=== PATIENT | female | born 1950 | race Caucasian/White ===

== ENCOUNTER 2023-08-08 09:56 | Outpatient (AMB) | payer MEDICARE, OTHER, SELFPAY ==
[2023-08-08 10:12] VITALS: BP 160/90; PULSE 60; BMI 35.9
--- NOTE | 2023-08-08 10:12 | HO.NEPHOV_ITS ---
HPI HPI Comments History of Present Illness Details I had the pleasure of seeing Rita in follow-up for her chronic kidney disease and hypertension on a background of right renal artery stenosis. She had pain issues and was on meloxicam which she had stopped some time ago. She does not have diabetes mellitus but has hypertension for at least 30 years. She has history of atrial fibrillation but denies any PAD, CAD, CHF . She monitors her blood pressure at home closely. Her heart rate had been running in 50s. She is on flecainide as well as Diltiazem. She also takes angiotensin receptor kiera. Sometime ago her creatinine had gone up to 2 which had later improved to 1.1. Her blood pressure continues to be labile. She does not have any chest pain, shortness of breath, headache, dizziness, edema or urinary symptoms. She is concerned about her suboptimally controlled blood pressure. [facility] Medical History Hyperlipidemia Malaise and fatigue Impaired fasting glucose Essential hypertension Atrial fibrillation Acute kidney failure Family History (Updated 08/08/23 @ 10:11 by Pauly Powell MA) Father Stroke Hypertension Diabetes Maternal Aunt Cancer Vital Signs 08/08/23 10:12 Height 5 ft 2 in Weight 196 lb 8 oz BMI 35.9 BP 160/90 H Pulse 60 Pulse Source Pulse Oximeter Results Reviewed Results Reviewed: Her last lab work was quite awhile ago. I have ordered blood work before next visit. Assessment & Plan Assessment & Plan (1) CKD (chronic kidney disease) stage 3, GFR 30-59 ml/min: Code(s): N18.30 - Chronic kidney disease, stage 3 unspecified (2) Hypertension: Code(s): I10 - Essential (primary) hypertension (3) Renal artery stenosis: Code(s): I70.1 - Atherosclerosis of renal artery Plan Rita has hypertension from vascular disease. She has right renal artery stenosis. Her last serum creatinine was 1.1. Blood work had been ordered prior to next visit in a month. After seeing her serum creatinine I will order Doppler of her renal arteries at the next visit. She may need renal angiogram. Given suboptimal control blood pressure, I have increased the hydralazine to 75 mg 3 times a day. She should avoid nonsteroidal anti-inflammatory medications and remain well hydrated. All questions were answered and follow-up was given . She is already on Eliquis. She is on simvastatin as well. Time spent for for curing data outside hospital, encounter and documentation is 43 minutes. Orders: Orders Blood Urea Nitrogen Today I10 - Essential (primary) hypertension, I70.1 - Atherosclerosis of renal artery, N18.30 - Chronic kidney disease, stage 3 unspecified Creatinine Today I10 - Essential (primary) hypertension, I70.1 - Atherosclerosis of renal artery, N18.30 - Chronic kidney disease, stage 3 unspecified Calcium Today I10 - Essential (primary) hypertension, I70.1 - Atherosclerosis of renal artery, N18.30 - Chronic kidney disease, stage 3 unspecified Electrolytes Today I10 - Essential (primary) hypertension, I70.1 - Atherosclerosis of renal artery, N18.30 - Chronic kidney disease, stage 3 unspecified Coding Level of Care Code Est Pt Level 4 (79353) Diagnoses CKD (chronic kidney disease) stage 3, GFR 30-59 ml/min N18.30 Hypertension I10 Renal artery stenosis I70.1
== END 2023-08-08 10:53 | disposition home or self-care (01) ==
PROVIDERS: PCP Internal Medicine; Visit Provider Internal Medicine Nephrology
DX: N18.30 Chronic kidney disease, stage 3 unspecified (principal); I12.9 Hypertensive chronic kidney disease with stage 1 through stage 4 chronic kidney disease, or unspecified chronic kidney disease; I70.1 Atherosclerosis of renal artery
CPT/HCPCS: 99215

== ENCOUNTER → 2023-08-08 09:56 | Outpatient (BNVA) | payer MEDICARE, OTHER, SELFPAY | PROVIDERS: PCP Internal Medicine; Visit Provider Internal Medicine Nephrology | DX: I12.9 Hypertensive chronic kidney disease with stage 1 through stage 4 chronic kidney disease, or unspecified chronic kidney disease (principal); N18.30 Chronic kidney disease, stage 3 unspecified; I70.1 Atherosclerosis of renal artery | CPT/HCPCS: 36415; 80051; 82310; 82565; 84520; 99212 ==

== ENCOUNTER 2023-08-08 11:12 | Outpatient (REF) | payer MEDICARE, OTHER, SELFPAY ==
[2023-08-08 13:50] LABS: Anion Gap 12 (12-20); Blood Urea Nitrogen 15 mg/dL (9-16); Calcium 9.4 mg/dL (8.4-10.2); Carbon Dioxide 30 mmol/L (22-29); Chloride 104 mmol/L (96-108); Estimated Glomerular Filt Rate > 60; Potassium 3.7 mmol/L (3.3-5.1); Sodium 142 mmol/L (135-145)
== END 2023-08-08 11:13 | disposition home or self-care (01) ==
LOC: HO.10HDL 11:12
PROVIDERS: Visit Provider Internal Medicine Nephrology
DX: Z13.89 Encounter for screening for other disorder (principal)
CPT/HCPCS: 36415; 80051; 82310; 82565; 84520

== ENCOUNTER 2023-09-04 13:36 | Outpatient (AMB) | payer MEDICARE, OTHER, SELFPAY ==
[2023-09-04 13:48] VITALS: PULSE 62; BMI 35.9
--- NOTE | 2023-09-04 13:48 | HO.NEPHOV ---
HPI HPI Comments History of Present Illness Details I had the pleasure of seeing Rita in follow-up for her chronic kidney disease and hypertension on a background of right renal artery stenosis. She had pain issues and was on meloxicam which she had stopped some time ago. She does not have diabetes mellitus but has hypertension for at least 30 years. Her BP has improved after increasing hydralazine to 75 mg tid. She has history of atrial fibrillation but denies any PAD, CAD, CHF . She monitors her blood pressure at home closely. Her heart rate had been running in 50s. She is on flecainide as well as Diltiazem. She also takes angiotensin receptor kiera. Sometime ago her creatinine had gone up to 2 which had later improved to 1.1. She does not have any chest pain, shortness of breath, headache, dizziness, edema or urinary symptoms. [facility] Medical History Hyperlipidemia Malaise and fatigue Impaired fasting glucose Essential hypertension Atrial fibrillation Acute kidney failure Family History Father Stroke Hypertension Diabetes Maternal Aunt Cancer Vital Signs 09/04/23 13:48 Height 5 ft 2 in Weight 196 lb 8 oz BMI 35.9 Pulse 62 Pulse Source Pulse Oximeter Physical Exam Vital Signs: Last Vital Signs Pulse 62 09/04/23 13:48 BMI result Body Mass Index 35.9 Const General: comfortable and no acute distress Orientation/consciousness: patient oriented x3 HEENT Head: Yes normocephalic Mouth: Normal oral and palatal mucosa present Eyes EOM: EOMs intact bilaterally Neck Neck: Yes supple Resp Auscultation: clear to auscultation bilaterally Cardio Jugular venous distension: no JVD Rate: regular rate GI Palpation (GI): Soft to palpation Auscultation: normal bowel sounds General: Yes no CVA tenderness Back/Spine/Pelvis Back: no CVA tenderness Skin General skin exam: no rashes or lesions noted Neuro General: patient oriented x3 and moves all extremities Extrem General: Yes no pedal edema Assessment & Plan Assessment & Plan (1) Hypertension: Code(s): I10 - Essential (primary) hypertension Qualifiers: Hypertension type: renovascular hypertension Qualified Code(s): I15.0 - Renovascular hypertension (2) Renal artery stenosis: Code(s): I70.1 - Atherosclerosis of renal artery Plan Rita has hypertension from vascular disease. She has right renal artery stenosis. Her last serum creatinine was 1.1. I will order Doppler of her renal arteries at the next visit. She may need renal angiogram. She will continue her current medication regimen for now.. She should avoid nonsteroidal anti-inflammatory medications and remain well hydrated. All questions were answered and follow-up was given . She is already on Eliquis. She is on simvastatin as well. Follow-up given Orders: Orders Blood Urea Nitrogen 09/04/23 I10 - Essential (primary) hypertension, I70.1 - Atherosclerosis of renal artery Creatinine 09/04/23 I10 - Essential (primary) hypertension, I70.1 - Atherosclerosis of renal artery Electrolytes 6 Weeks I10 - Essential (primary) hypertension, I70.1 - Atherosclerosis of renal artery Blood Urea Nitrogen 6 Weeks I10 - Essential (primary) hypertension, I70.1 - Atherosclerosis of renal artery Electrolytes 09/04/23 I10 - Essential (primary) hypertension, I70.1 - Atherosclerosis of renal artery Creatinine 6 Weeks I10 - Essential (primary) hypertension, I70.1 - Atherosclerosis of renal artery Medications: New spironolactone 12.5 mg (1/2 x 25 mg) PO DAILY 15 tabs 3RF 30 days Coding Level of Care Code Est Pt Level 3 (18744) Diagnoses Renovascular hypertension I15.0 Hypertension type: renovascular hypertension Renal artery stenosis I70.1 Results Reviewed Nephrology Results: Sodium 143 mmol/L (135-145) 09/15/23 Potassium 3.7 mmol/L (3.3-5.1) 09/15/23 Chloride 103 mmol/L (96-108) 09/15/23 Carbon Dioxide 27 mmol/L (22-29) 09/15/23 BUN 19 mg/dL (9-16) H 09/15/23 Creatinine 0.97 mg/dL (0.5-1.4) 09/15/23 Calcium 9.4 mg/dL (8.4-10.2) 08/08/23
== END 2023-09-04 14:28 | disposition home or self-care (01) ==
PROVIDERS: PCP Internal Medicine; Visit Provider Internal Medicine Nephrology
DX: I15.0 Renovascular hypertension (principal); I70.1 Atherosclerosis of renal artery
CPT/HCPCS: 99213

== ENCOUNTER → 2023-09-04 13:36 | Outpatient (BNVA) | payer MEDICARE, BC, OTHER, SELFPAY | PROVIDERS: PCP Internal Medicine; Visit Provider Internal Medicine Nephrology | DX: I15.0 Renovascular hypertension (principal); I70.1 Atherosclerosis of renal artery | CPT/HCPCS: 99212 ==

== ENCOUNTER 2023-09-15 09:29 | Outpatient (REF) | payer MEDICARE, OTHER, SELFPAY ==
[2023-09-15 12:10] LABS: Anion Gap 17 (12-20); Blood Urea Nitrogen 19 mg/dL (9-16); Carbon Dioxide 27 mmol/L (22-29); Chloride 103 mmol/L (96-108); Estimated Glomerular Filt Rate 56; Potassium 3.7 mmol/L (3.3-5.1); Sodium 143 mmol/L (135-145)
== END 2023-09-15 09:30 | disposition home or self-care (01) ==
LOC: HO.HMGCLDS 09:29
PROVIDERS: PCP Internal Medicine; Visit Provider Internal Medicine Nephrology
DX: I10 Essential (primary) hypertension (principal); I70.1 Atherosclerosis of renal artery
CPT/HCPCS: 36415; 80051; 82565; 84520

== ENCOUNTER 2023-10-20 10:32 | Outpatient (AMB) | payer MEDICARE, OTHER, SELFPAY ==
[2023-10-20 10:37] VITALS: BP 160/74; PULSE 59; O2SAT 98; BMI 35.5
--- NOTE | 2023-10-20 10:37 | HO.NEPHOV_ITS ---
HPI HPI Comments History of Present Illness Details I had the pleasure of seeing Rita in follow-up for her chronic kidney disease and hypertension on a background of right renal artery stenosis. She does not have diabetes mellitus but has hypertension for at least 30 years. Her BP has improved to goal after increasing hydralazine to 75 mg tid and introduction of Spironolactone. She has history of atrial fibrillation but denies any PAD, CAD, CHF . She monitors her blood pressure at home closely. Her heart rate had been running in 50s. She is on flecainide as well as Diltiazem. She also takes angiotensin receptor kiera. Sometime ago her creatinine had gone up to 2 which had later improved to 1.1. She does not have any chest pain, shortness of breath, headache, dizziness, edema or urinary symptoms PFSH Medical History Hyperlipidemia Malaise and fatigue Impaired fasting glucose Essential hypertension Atrial fibrillation Acute kidney failure Family History Father Stroke Hypertension Diabetes Maternal Aunt Cancer Vital Signs 10/20/23 10:37 Height 5 ft 2 in Weight 194 lb BMI 35.5 BP 160/74 H Blood Pressure Location Lt brachial Position Sitting Pulse 59 Pulse Source Pulse Oximeter Pulse Oximetry (%) 98 Oxygen Delivery Method Room Air Physical Exam Vital Signs: Last Vital Signs Pulse 59 10/20/23 10:37 BP 160/74 H 10/20/23 10:37 Pulse Ox 98 10/20/23 10:37 Oxygen Delivery Method Room Air 10/20/23 10:37 BMI result Body Mass Index 35.5 Const General: comfortable and no acute distress Orientation/consciousness: patient oriented x3 HEENT Head: Yes normocephalic Mouth: Normal oral and palatal mucosa present Eyes EOM: EOMs intact bilaterally Neck Neck: Yes supple Resp Auscultation: clear to auscultation bilaterally Cardio Jugular venous distension: no JVD Rate: regular rate GI Palpation (GI): Soft to palpation Auscultation: normal bowel sounds General: Yes no CVA tenderness Back/Spine/Pelvis Back: no CVA tenderness Skin General skin exam: no rashes or lesions noted Neuro General: patient oriented x3 and moves all extremities Extrem General: Yes no pedal edema Assessment & Plan Assessment & Plan (1) Renal artery stenosis: Code(s): I70.1 - Atherosclerosis of renal artery (2) Hypertension: Code(s): I10 - Essential (primary) hypertension Qualifiers: Hypertension type: renovascular hypertension Qualified Code(s): I15.0 - Renovascular hypertension (3) CKD (chronic kidney disease) stage 3, GFR 30-59 ml/min: Code(s): N18.30 - Chronic kidney disease, stage 3 unspecified Qualifiers: Chronic kidney disease stage 3 subtype: stage 3a (GFR 45-59) Qualified Code(s): N18.31 - Chronic kidney disease, stage 3a Plan Rita has hypertension from vascular disease. She has right renal artery stenosis. Her last serum creatinine was 1.1. I will order a follow up Doppler of her renal arteries with time. She does not need renal angiogram now. She will continue her current medication regimen for now.. She should avoid nonsteroidal anti-inflammatory medications and remain well hydrated. All questions were answered and follow-up was given . She is already on Eliquis. She is on simvastatin as well. Follow-up given Orders: Orders Blood Urea Nitrogen 10/20/23 I10 - Essential (primary) hypertension, I70.1 - Atherosclerosis of renal artery, N18.30 - Chronic kidney disease, stage 3 unspecified Creatinine 10/20/23 I10 - Essential (primary) hypertension, I70.1 - Atherosclerosis of renal artery, N18.30 - Chronic kidney disease, stage 3 unspecified Creatinine 3 Months I10 - Essential (primary) hypertension, I70.1 - Atherosclerosis of renal artery, N18.30 - Chronic kidney disease, stage 3 unspecified Electrolytes 10/20/23 I10 - Essential (primary) hypertension, I70.1 - Ather osclerosis of renal artery, N18.30 - Chronic kidney disease, stage 3 unspecified Medications: Changed From spironolactone 12.5 mg (1/2 x 25 mg) PO DAILY 30 days 15 tabs 3RF To spironolactone 12.5 mg (1/2 x 25 mg) PO DAILY 90 days 45 tabs 4RF Coding Level of Care Code Est Pt Level 3 (85537) Diagnoses Renal artery stenosis I70.1 Renovascular hypertension I15.0 Hypertension type: renovascular hypertension Stage 3a chronic kidney disease N18.31 Chronic kidney disease stage 3 subtype: stage 3a (GFR 45-59) Results Reviewed Nephrology Results: Sodium 143 mmol/L (135-145) 09/15/23 Potassium 3.7 mmol/L (3.3-5.1) 09/15/23 Chloride 103 mmol/L (96-108) 09/15/23 Carbon Dioxide 27 mmol/L (22-29) 09/15/23 BUN 19 mg/dL (9-16) H 09/15/23 Creatinine 0.97 mg/dL (0.5-1.4) 09/15/23 Calcium 9.4 mg/dL (8.4-10.2) 08/08/23
== END 2023-10-20 11:24 | disposition home or self-care (01) ==
PROVIDERS: PCP Internal Medicine; Visit Provider Internal Medicine Nephrology
DX: I70.1 Atherosclerosis of renal artery (principal); I15.0 Renovascular hypertension; N18.31 Chronic kidney disease, stage 3a
CPT/HCPCS: 99213

== ENCOUNTER → 2023-10-20 10:32 | Outpatient (BNVA) | payer MEDICARE, SELFPAY | PROVIDERS: PCP Internal Medicine; Visit Provider Internal Medicine Nephrology | DX: I70.1 Atherosclerosis of renal artery (principal); I15.0 Renovascular hypertension; N18.31 Chronic kidney disease, stage 3a | CPT/HCPCS: 99212 ==

== ENCOUNTER 2023-12-15 09:56 | Outpatient (REF) | payer MEDICARE, OTHER, SELFPAY ==
[2023-12-15 13:46] LABS: Anion Gap 11 (12-20); Blood Urea Nitrogen 31 mg/dL (9-16); Carbon Dioxide 27 mmol/L (22-29); Chloride 108 mmol/L (96-108); Estimated Glomerular Filt Rate 32; Potassium 4.1 mmol/L (3.3-5.1); Sodium 142 mmol/L (135-145)
== END 2023-12-15 09:57 | disposition home or self-care (01) ==
LOC: HO.HMGCLDS 09:56
PROVIDERS: PCP Internal Medicine; Visit Provider Internal Medicine Nephrology
DX: I12.9 Hypertensive chronic kidney disease with stage 1 through stage 4 chronic kidney disease, or unspecified chronic kidney disease (principal); N18.30 Chronic kidney disease, stage 3 unspecified; I70.1 Atherosclerosis of renal artery
CPT/HCPCS: 36415; 80051; 82565; 84520

== ENCOUNTER 2024-01-02 10:40 | Outpatient (REF) | payer MEDICARE, OTHER, SELFPAY ==
[2024-01-02 16:33] LABS: Estimated Glomerular Filt Rate 40
== END 2024-01-02 10:41 | disposition home or self-care (01) ==
LOC: HO.HMGCLDS 10:40
PROVIDERS: PCP Internal Medicine; Visit Provider Internal Medicine Nephrology
DX: I70.1 Atherosclerosis of renal artery (principal); I12.9 Hypertensive chronic kidney disease with stage 1 through stage 4 chronic kidney disease, or unspecified chronic kidney disease; N18.30 Chronic kidney disease, stage 3 unspecified
CPT/HCPCS: 36415; 82565

== ENCOUNTER 2024-01-05 10:12 | Outpatient (AMB) | payer MEDICARE, OTHER, SELFPAY ==
[2024-01-05 10:19] VITALS: BP 156/82; PULSE 67; BMI 35.0
--- NOTE | 2024-01-05 10:19 | HO.NEPHOV ---
HPI HPI Comments History of Present Illness Details I had the pleasure of seeing Rita in follow-up for her chronic kidney disease and hypertension on a background of right renal artery stenosis. She does not have diabetes mellitus but has hypertension for at least 30 years. Her serum creatinine had gone up and her Irbesartan was reduced to 150 mg with improvement in creatinine. She has history of atrial fibrillation but denies any PAD, CAD, CHF . She monitors her blood pressure at home closely. She is on flecainide as well as Diltiazem. She does not have any chest pain, shortness of breath, headache, dizziness, edema or urinary symptoms [facility] Medical History Hyperlipidemia Malaise and fatigue Impaired fasting glucose Essential hypertension Atrial fibrillation Acute kidney failure Family History Father Stroke Hypertension Diabetes Maternal Aunt Cancer Vital Signs 01/05/24 10:19 Height 5 ft 2 in Weight 191 lb 8 oz BMI 35.0 BP 156/82 H Blood Pressure Location Lt brachial Position Sitting Pulse 67 Physical Exam Vital Signs: Last Vital Signs Pulse 67 01/05/24 10:19 BP 156/82 H 01/05/24 10:19 BMI result Body Mass Index 35.0 Const General: comfortable and no acute distress Orientation/consciousness: patient oriented x3 HEENT Head: Yes normocephalic Mouth: Normal oral and palatal mucosa present Eyes EOM: EOMs intact bilaterally Neck Neck: Yes supple Resp Auscultation: clear to auscultation bilaterally Cardio Jugular venous distension: no JVD Rate: regular rate GI Palpation (GI): Soft to palpation Auscultation: normal bowel sounds General: Yes no CVA tenderness Back/Spine/Pelvis Back: no CVA tenderness Skin General skin exam: no rashes or lesions noted Neuro General: patient oriented x3 and moves all extremities Extrem General: Yes no pedal edema Assessment & Plan Assessment & Plan (1) CHARISSE (acute kidney injury): Code(s): N17.9 - Acute kidney failure, unspecified (2) Renal artery stenosis: Code(s): I70.1 - Atherosclerosis of renal artery (3) Hypertension: Code(s): I10 - Essential (primary) hypertension Qualifiers: Hypertension type: renovascular hypertension Qualified Code(s): I15.0 - Renovascular hypertension (4) CKD (chronic kidney disease) stage 3, GFR 30-59 ml/min: Code(s): N18.30 - Chronic kidney disease, stage 3 unspecified Qualifiers: Chronic kidney disease stage 3 subtype: stage 3a (GFR 45-59) Qualified Code(s): N18.31 - Chronic kidney disease, stage 3a Gabriela Salinas has hypertension from vascular disease. She has right renal artery stenosis. Her CHARISSE has improved with reduction in dosage of Irbesartan. I will order a follow up Doppler of her renal arteries with time. She does not need renal angiogram now. She will continue her rest of current medication regimen for now.. She should avoid nonsteroidal anti-inflammatory medications and remain well hydrated. All questions were answered and follow-up was given . She is already on Eliquis. She is on simvastatin as well. Follow-up given Orders: Orders Blood Urea Nitrogen Today I15.0 - Renovascular hypertension, I70.1 - Atherosclerosis of renal artery, N17.9 - Acute kidney failure, unspecified, N18.31 - Chronic kidney disease, stage 3a Creatinine Today I15.0 - Renovascular hypertension, I70.1 - Atherosclerosis of renal artery, N17.9 - Acute kidney failure, unspecified, N18.31 - Chronic kidney disease, stage 3a Electrolytes Today I15.0 - Renovascular hypertension, I70.1 - Atherosclerosis of renal artery, N17.9 - Acute kidney failure, unspecified, N18.31 - Chronic kidney disease, stage 3a Coding Level of Care Code Est Pt Level 4 (41899) Diagnoses CHARISSE (acute kidney injury) N17.9 Renal artery stenosis I70.1 Renovascular hypertension I15.0 Hypertension type: renovascular hypertension Stage 3a chronic kidney disease N18.31 Chronic kidney disease stage 3 subtype: stage 3a (GFR 45-59) Results Reviewed Nephrology Results: Sodium 142 mmol/L (135-145) 12/15/23 Potassium 4.1 mmol/L (3.3-5.1) 12/15/23 Chloride 108 mmol/L (96-108) 12/15/23 Carbon Dioxide 27 mmol/L (22-29) 12/15/23 BUN 31 mg/dL (9-16) H 12/15/23 Creatinine 1.31 mg/dL (0.5-1.4) 01/02/24 Calcium 9.4 mg/dL (8.4-10.2) 08/08/23
== END 2024-01-05 11:02 | disposition home or self-care (01) ==
PROVIDERS: PCP Internal Medicine; Visit Provider Internal Medicine Nephrology
DX: N17.9 Acute kidney failure, unspecified (principal); I70.1 Atherosclerosis of renal artery; I15.0 Renovascular hypertension; N18.31 Chronic kidney disease, stage 3a
CPT/HCPCS: 99214

== ENCOUNTER → 2024-01-05 10:12 | Outpatient (BNVA) | payer MEDICARE, OTHER, BC, SELFPAY | PROVIDERS: PCP Internal Medicine; Visit Provider Internal Medicine Nephrology | DX: N17.9 Acute kidney failure, unspecified (principal); I70.1 Atherosclerosis of renal artery; I15.0 Renovascular hypertension; N18.31 Chronic kidney disease, stage 3a | CPT/HCPCS: 99212 ==

== ENCOUNTER 2024-04-16 09:54 | Outpatient (REF) | payer MEDICARE, BC, SELFPAY ==
[2024-04-16 11:14] LABS: Anion Gap 15 (12-20); Blood Urea Nitrogen 35 mg/dL (9-16); Carbon Dioxide 25 mmol/L (22-29); Chloride 105 mmol/L (96-108); Estimated Glomerular Filt Rate 38; Sodium 140 mmol/L (135-145)
== END 2024-04-16 09:55 | disposition home or self-care (01) ==
LOC: HO.10HDL 09:54
PROVIDERS: Visit Provider Internal Medicine Nephrology
DX: N17.9 Acute kidney failure, unspecified (principal); I70.1 Atherosclerosis of renal artery; I15.0 Renovascular hypertension; N18.31 Chronic kidney disease, stage 3a
CPT/HCPCS: 36415; 80051; 82565; 84520

== ENCOUNTER 2024-04-19 10:31 | Outpatient (AMB) | payer MEDICARE, OTHER, SELFPAY ==
[2024-04-19 10:47] VITALS: BP 112/58; PULSE 64; O2SAT 96; BMI 34.9
--- NOTE | 2024-04-19 10:47 | HO.NEPHOV ---
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 She has hypertension for at least 30 years. She recently had a fall and sustained a fracture on the right humerus. Her BP has been running low normal. She has history of atrial fibrillation but denies any PAD, CAD, CHF . She monitors her blood pressure at home closely. She is on flecainide as well as Diltiazem. She does not have any chest pain, shortness of breath, headache, dizziness, edema or urinary symptoms PFSH Medical History Hyperlipidemia Malaise and fatigue Impaired fasting glucose Essential hypertension Atrial fibrillation Acute kidney failure Family History Father Stroke Hypertension Diabetes Maternal Aunt Cancer Physical Exam Vital Signs: Last Vital Signs Pulse 64 04/19/24 10:47 BP 112/58 L 04/19/24 10:47 Pulse Ox 96 04/19/24 10:47 Oxygen Delivery Method Room Air 04/19/24 10:47 BMI result Body Mass Index 34.9 Const General: comfortable and no acute distress Orientation/consciousness: patient oriented x3 HEENT Head: Yes normocephalic Mouth: Normal oral and palatal mucosa present Eyes EOM: EOMs intact bilaterally Neck Neck: Yes supple Resp Auscultation: clear to auscultation bilaterally Cardio Jugular venous distension: no JVD Rate: regular rate GI Palpation (GI): Soft to palpation Auscultation: normal bowel sounds General: Yes no CVA tenderness Back/Spine/Pelvis Back: no CVA tenderness Skin General skin exam: no rashes or lesions noted Neuro General: patient oriented x3 and moves all extremities Extrem General: Yes no pedal edema Results Reviewed Nephrology Results: Sodium 140 mmol/L (135-145) 04/16/24 Potassium 5.0 mmol/L (3.3-5.1) 04/16/24 Chloride 105 mmol/L (96-108) 04/16/24 Carbon Dioxide 25 mmol/L (22-29) 04/16/24 BUN 35 mg/dL (9-16) H 04/16/24 Creatinine 1.35 mg/dL (0.5-1.4) 04/16/24 Calcium 9.4 mg/dL (8.4-10.2) 08/08/23 Assessment & Plan Assessment & Plan (1) Renal artery stenosis: Code(s): I70.1 - Atherosclerosis of renal artery Category: Medical (2) Hypertension: Code(s): I10 - Essential (primary) hypertension Category: Medical Qualifiers: Hypertension type: renovascular hypertension Qualified Code(s): I15.0 - Renovascular hypertension (3) CKD (chronic kidney disease) stage 3, GFR 30-59 ml/min: Code(s): N18.30 - Chronic kidney disease, stage 3 unspecified Category: Medical Qualifiers: Chronic kidney disease stage 3 subtype: stage 3a (GFR 45-59) Qualified Code(s): N18.31 - Chronic kidney disease, stage 3a Plan Rita has hypertension from vascular disease. She has right renal artery stenosis. Her CHARISSE has improved with reduction in dosage of Irbesartan. I will order a follow up Doppler of her renal arteries with time. She does not need renal angiogram now. She will continue her rest of current medication regimen for now but I have asked her to take Spironolactone in the afternoon and Diltiazem at supper time to avoid orthostasis. She should avoid nonsteroidal anti-inflammatory medications and remain well hydrated. All questions were answered and follow-up was given . She is already on Eliquis. She is on simvastatin as well. Follow-up given Orders: Orders Creatinine Today I15.0 - Renovascular hypertension, I70.1 - Atherosclerosis of renal artery, N18.31 - Chronic kidney disease, stage 3a Electrolytes Today I15.0 - Renovascular hypertension, I70.1 - Atherosclerosis of renal artery, N18.31 - Chronic kidney disease, stage 3a Blood Urea Nitrogen Today I15.0 - Renovascular hypertension, I70.1 - Atherosclerosis of renal artery, N18.31 - Chronic kidney disease, stage 3a Coding Level of Care Code Est Pt Level 4 (87884) Diagnoses Renal artery stenosis I70.1 Renovascular hypertension I15.0 Hypertension type: renovascular hypertension Stage 3a chronic kidney disease N18.31 Chronic kidney disease stage 3 subtype: stage 3a (GFR 45-59)
== END 2024-04-19 11:30 | disposition home or self-care (01) ==
PROVIDERS: PCP Internal Medicine; Visit Provider Internal Medicine Nephrology
DX: I70.1 Atherosclerosis of renal artery (principal); I15.0 Renovascular hypertension; N18.31 Chronic kidney disease, stage 3a
CPT/HCPCS: 99214

== ENCOUNTER → 2024-04-19 10:31 | Outpatient (BNVA) | payer MEDICARE, OTHER, SELFPAY | PROVIDERS: PCP Internal Medicine; Visit Provider Internal Medicine Nephrology | DX: I70.1 Atherosclerosis of renal artery (principal); I15.0 Renovascular hypertension; N18.31 Chronic kidney disease, stage 3a | CPT/HCPCS: 99212 ==

== ENCOUNTER 2024-06-12 10:46 | Outpatient (REF) | payer MEDICARE, OTHER, SELFPAY ==
[2024-06-12 14:45] LABS: Anion Gap 14 (12-20); Blood Urea Nitrogen 35 mg/dL (9-16); Carbon Dioxide 25 mmol/L (22-29); Chloride 108 mmol/L (96-108); Estimated Glomerular Filt Rate 32; Potassium 4.8 mmol/L (3.3-5.1); Sodium 142 mmol/L (135-145)
== END 2024-06-12 10:47 | disposition home or self-care (01) ==
LOC: HO.HMGCLDS 10:46
PROVIDERS: PCP Internal Medicine; Visit Provider Internal Medicine Nephrology
DX: I70.1 Atherosclerosis of renal artery (principal); I15.0 Renovascular hypertension; N18.31 Chronic kidney disease, stage 3a
CPT/HCPCS: 36415; 80051; 82565; 84520

== ENCOUNTER 2024-06-14 14:15 | Outpatient (AMB) | payer MEDICARE, OTHER, SELFPAY ==
--- NOTE | 2024-06-14 14:24 | HO.NEPHOV_ITS ---
Vital Signs 06/14/24 14:25 Height 5 ft 2 in Weight 191 lb 4 oz BMI 35.0 BP 102/60 Blood Pressure Location Lt brachial Position Sitting Pulse 63 Pulse Source Pulse Oximeter Pulse Oximetry (%) 100 Oxygen Delivery Method Room Air Intake Visit Reasons: 2 mon follow up- Conf Photographic Specialist Required: No Accompanied by: Self / Same As Patient Allergies atenolol Allergy (Verified 06/14/24 14:27) Unknown HPI Comments Details: I had the pleasure of seeing Rita in follow-up for her chronic kidney disease and hypertension on a background of right renal artery stenosis. She has hypertension for at least 30 years. She recently had a fall and sustained a fracture on the right humerus. Her BP has been running low normal. She has history of atrial fibrillation but denies any PAD, CAD, CHF . She monitors her blood pressure at home closely. She is on flecainide as well as Diltiazem. She does not have any chest pain, shortness of breath, headache, dizziness, edema or urinary symptoms. Her BP has been running low PFSH Medical History Hyperlipidemia Malaise and fatigue Impaired fasting glucose Essential hypertension Atrial fibrillation Acute kidney failure Family History Father Stroke Hypertension Diabetes Maternal Aunt Cancer Review of Systems Const All systems reviewed & are unremarkable except as noted in HPI and below Physical Exam Vital Signs: Last Vital Signs Pulse 63 06/14/24 14:25 BP 102/60 06/14/24 14:25 Pulse Ox 100 06/14/24 14:25 Oxygen Delivery Method Room Air 06/14/24 14:25 BMI result Body Mass Index 35.0 Const General: comfortable and no acute distress Orientation/consciousness: patient oriented x3 HEENT Head: Yes normocephalic Mouth: Normal oral and palatal mucosa present Eyes EOM: EOMs intact bilaterally Neck Neck: Yes supple Resp Auscultation: clear to auscultation bilaterally Cardio Jugular venous distension: no JVD Rate: regular rate GI Palpation (GI): Soft to palpation Auscultation: normal bowel sounds General: Yes no CVA tenderness Back/Spine/Pelvis Back: no CVA tenderness Skin General skin exam: no rashes or lesions noted Neuro General: patient oriented x3 and moves all extremities Extrem General: Yes no pedal edema Results Reviewed Nephrology Results: Sodium 142 mmol/L (135-145) 06/12/24 Potassium 4.8 mmol/L (3.3-5.1) 06/12/24 Chloride 108 mmol/L (96-108) 06/12/24 Carbon Dioxide 25 mmol/L (22-29) 06/12/24 BUN 35 mg/dL (9-16) H 06/12/24 Creatinine 1.56 mg/dL (0.5-1.4) H 06/12/24 Assessment & Plan Assessment & Plan (1) Renal artery stenosis: Code(s): I70.1 - Atherosclerosis of renal artery Category: Medical (2) Hypertension: Code(s): I10 - Essential (primary) hypertension Category: Medical Qualifiers: Hypertension type: renovascular hypertension Qualified Code(s): I15.0 - Renovascular hypertension (3) CKD (chronic kidney disease) stage 3, GFR 30-59 ml/min: Code(s): N18.30 - Chronic kidney disease, stage 3 unspecified Category: Medical Qualifiers: Chronic kidney disease stage 3 subtype: stage 3a (GFR 45-59) Qualified Code(s): N18.31 - Chronic kidney disease, stage 3a Plan Rita has hypertension from vascular disease. She has right renal artery stenosis. Her CHARISSE has improved with reduction in dosage of Irbesartan but has gone up again. Her BP is running low normal. I reduced her hydralazine to 50 mg tid. I will order a follow up Doppler of her renal arteries with time. She does not need renal angiogram now. She will continue her rest of current medication regimen for now but I have asked her to take Spironolactone in the afternoon and Diltiazem at supper time to avoid orthostasis. She should avoid nonsteroidal anti-inflammatory medications and remain well hydrated. All questions were answered and follow-up was given . She is already on Eliquis. She is on simvastatin as well. Follow-up given Coding Level of Care Code Est Pt Level 4 (78774) Diagnoses Renal artery stenosis I70.1 Renovascular hypertension I15.0 Hypertension type: renovascular hypertension Stage 3a chronic kidney disease N18.31 Chronic kidney disease stage 3 subtype: stage 3a (GFR 45-59)
[2024-06-14 14:25] VITALS: BP 102/60; PULSE 63; O2SAT 100; BMI 35.0
== END 2024-06-14 14:54 | disposition home or self-care (01) ==
PROVIDERS: PCP Internal Medicine; Visit Provider Internal Medicine Nephrology
DX: I70.1 Atherosclerosis of renal artery (principal); I12.9 Hypertensive chronic kidney disease with stage 1 through stage 4 chronic kidney disease, or unspecified chronic kidney disease; N18.31 Chronic kidney disease, stage 3a
CPT/HCPCS: 99214

== ENCOUNTER → 2024-06-14 14:15 | Outpatient (BNVA) | payer MEDICARE, OTHER, SELFPAY | PROVIDERS: PCP Internal Medicine; Visit Provider Internal Medicine Nephrology | DX: I15.0 Renovascular hypertension (principal); I48.91 Unspecified atrial fibrillation; I70.1 Atherosclerosis of renal artery; N18.31 Chronic kidney disease, stage 3a | CPT/HCPCS: 99212 ==

== ENCOUNTER 2024-07-25 14:10 | Outpatient (REF) | payer MEDICARE, OTHER, SELFPAY ==
[2024-07-25 16:45] LABS: Anion Gap 12 (12-20); Blood Urea Nitrogen 22 mg/dL (9-16); Carbon Dioxide 26 mmol/L (22-29); Chloride 108 mmol/L (96-108); Estimated Glomerular Filt Rate 44; Potassium 4.3 mmol/L (3.3-5.1); Sodium 142 mmol/L (135-145)
== END 2024-07-25 14:11 | disposition home or self-care (01) ==
LOC: HO.HMGCLDS 14:10
PROVIDERS: PCP Internal Medicine; Visit Provider Internal Medicine Nephrology
DX: N17.9 Acute kidney failure, unspecified (principal); N18.31 Chronic kidney disease, stage 3a
CPT/HCPCS: 36415; 80051; 82565; 84520

== ENCOUNTER 2024-08-16 10:59 | Outpatient (AMB) | payer MEDICARE, OTHER, SELFPAY ==
--- NOTE | 2024-08-16 11:04 | HO.NEPHOV_ITS ---
Vital Signs 08/16/24 11:06 Height 5 ft 2 in Weight 192 lb 6 oz BMI 35.2 BP 116/70 Blood Pressure Location Lt brachial Position Sitting Pulse 56 Pulse Source Pulse Oximeter Pulse Oximetry (%) 98 Oxygen Delivery Method Room Air Intake Visit Reasons: CKD-Conf Fleet Administrative Assistant Required: No Accompanied by: Self / Same As Patient Allergies atenolol Allergy (Verified 08/16/24 11:06) Unknown HPI Comments Details: I had the pleasure of seeing Rita in follow-up for her chronic kidney disease and hypertension on a background of right renal artery stenosis. She has hypertension for at least 30 years. She recently had a fall and sustained a fracture on the right humerus. She has history of atrial fibrillation but denies any PAD, CAD, CHF . She monitors her blood pressure at home closely. She is on flecainide as well as Diltiazem. She does not have any chest pain, shortness of breath, headache, dizziness, edema or urinary symptoms. [facility] Medical History Hyperlipidemia Malaise and fatigue Impaired fasting glucose Essential hypertension Atrial fibrillation Acute kidney failure Family History Father Stroke Hypertension Diabetes Maternal Aunt Cancer Review of Systems Const All systems reviewed & are unremarkable except as noted in HPI and below Physical Exam Vital Signs: Last Vital Signs Pulse 56 08/16/24 11:06 BP 116/70 08/16/24 11:06 Pulse Ox 98 08/16/24 11:06 Oxygen Delivery Method Room Air 08/16/24 11:06 BMI result Body Mass Index 35.2 Const General: comfortable and no acute distress Orientation/consciousness: patient oriented x3 HEENT Head: Yes normocephalic Mouth: Normal oral and palatal mucosa present Eyes EOM: EOMs intact bilaterally Neck Neck: Yes supple Resp Auscultation: clear to auscultation bilaterally Cardio Jugular venous distension: no JVD Rate: regular rate GI Palpation (GI): Soft to palpation Auscultation: normal bowel sounds General: Yes no CVA tenderness Back/Spine/Pelvis Back: no CVA tenderness Skin General skin exam: no rashes or lesions noted Neuro General: patient oriented x3 and moves all extremities Extrem General: Yes no pedal edema Results Reviewed Nephrology Results: Sodium 142 mmol/L (135-145) 07/25/24 Potassium 4.3 mmol/L (3.3-5.1) 07/25/24 Chloride 108 mmol/L (96-108) 07/25/24 Carbon Dioxide 26 mmol/L (22-29) 07/25/24 BUN 22 mg/dL (9-16) H 07/25/24 Creatinine 1.20 mg/dL (0.5-1.4) 07/25/24 Assessment & Plan Assessment & Plan (1) Renal artery stenosis: Code(s): I70.1 - Atherosclerosis of renal artery Category: Medical (2) Hypertension: Code(s): I10 - Essential (primary) hypertension Category: Medical Qualifiers: Hypertension type: renovascular hypertension Qualified Code(s): I15.0 - Renovascular hypertension (3) CKD (chronic kidney disease) stage 3, GFR 30-59 ml/min: Code(s): N18.30 - Chronic kidney disease, stage 3 unspecified Category: Medical Qualifiers: Chronic kidney disease stage 3 subtype: stage 3a (GFR 45-59) Qualified Code(s): N18.31 - Chronic kidney disease, stage 3a Plan Rita has hypertension from vascular disease. She has right renal artery stenosis. Her CHARISSE has improved with reduction in dosage of Irbesartan but has gone up again. Her BP is doing ok after. I reduced her hydralazine to 50 mg tid. I shall back off her hydralazine if her BP drifts down further. I will order a follow up Doppler of her renal arteries with time. She does not need renal angiogram now. She should avoid nonsteroidal anti-inflammatory medications and remain well hydrated. All questions were answered and follow-up was given . She is already on Eliquis. She is on simvastatin as well. Follow-up given Orders: Orders Creatinine 4 Months I15.0 - Renovascular hypertension, I70.1 - Atherosclerosis of renal artery, N18.31 - Chronic kidney disease, stage 3a Blood Urea Nitrogen 4 Months I15.0 - Renovascular hypertension, I70.1 - Atherosclerosis of renal artery, N18.31 - Chronic kidney disease, stage 3a Electrolytes 4 Months I15.0 - Renovascular hypertension, I70.1 - Atherosclerosis of renal artery, N18.31 - Chronic kidney disease, stage 3a Medications: Changed From irbesartan 150 mg PO DAILY To irbesartan 150 mg PO DAILY 90 days 90 tabs 4RF Coding Level of Care Code Est Pt Level 4 (39542) Diagnoses Renal artery stenosis I70.1 Renovascular hypertension I15.0 Hypertension type: renovascular hypertension Stage 3a chronic kidney disease N18.31 Chronic kidney disease stage 3 subtype: stage 3a (GFR 45-59)
[2024-08-16 11:06] VITALS: BP 116/70; PULSE 56; O2SAT 98; BMI 35.2
== END 2024-08-16 11:24 | disposition home or self-care (01) ==
PROVIDERS: PCP Internal Medicine; Visit Provider Internal Medicine Nephrology
DX: I70.1 Atherosclerosis of renal artery (principal); I15.0 Renovascular hypertension; N18.31 Chronic kidney disease, stage 3a
CPT/HCPCS: 99214

== ENCOUNTER → 2024-08-16 10:59 | Outpatient (BNVA) | payer MEDICARE, OTHER, SELFPAY | PROVIDERS: PCP Internal Medicine; Visit Provider Internal Medicine Nephrology | DX: I70.1 Atherosclerosis of renal artery (principal); I15.0 Renovascular hypertension; N18.31 Chronic kidney disease, stage 3a; I48.0 Paroxysmal atrial fibrillation | CPT/HCPCS: 99212 ==

== ENCOUNTER 2024-11-20 11:58 | Outpatient (AMB) | payer MEDICARE, BC, OTHER, SELFPAY ==
--- NOTE | 2024-11-20 11:54 | HO.NEPHOV ---
Intake Visit Reasons: Pt req phone visit re:Low BP Golf Club Assembler Required: No Accompanied by: Self / Same As Patient Allergies atenolol Allergy (Verified 11/20/24 11:54) Unknown HPI Comments Details: Rita in follow-up by Stuffle for her chronic kidney disease and hypertension on a background of right renal artery stenosis. She has hypertension for at least 30 years. She has history of atrial fibrillation but denies any PAD, CAD, CHF . She monitors her blood pressure at home closely. She is on flecainide as well as Diltiazem. She does not have any chest pain, shortness of breath, headache, dizziness, edema or urinary symptoms. Her blood pressures have been running low lately( 102/65 # 2 102/63). She was sick with a bacterial infection . On 11/[address] Stock prescribed the Z-pack & steroids with improvement. [facility] Medical History Hyperlipidemia Malaise and fatigue Impaired fasting glucose Essential hypertension Atrial fibrillation Acute kidney failure Family History Father Stroke Hypertension Diabetes Maternal Aunt Cancer Review of Systems Const All systems reviewed & are unremarkable except as noted in HPI and below Telehealth Telehealth Telehealth Platform: Telephone Location of provider rendering services: practice address Location of patient: address on file Patient Identification confirmed using: Name, : Yes Telehealth method: voice only Patient verbally consented to treatment: Yes Patient verbally consented to billing insurance company: Yes Patient informed of any privacy concerns related to visit: No Minutes spent on Phone/Video with Pt.: 10 Assessment & Plan Assessment & Plan (1) Renal artery stenosis: Code(s): I70.1 - Atherosclerosis of renal artery Category: Medical (2) CKD (chronic kidney disease) stage 3, GFR 30-59 ml/min: Code(s): N18.30 - Chronic kidney disease, stage 3 unspecified Category: Medical Qualifiers: Chronic kidney disease stage 3 subtype: stage 3a (GFR 45-59) Qualified Code(s): N18.31 - Chronic kidney disease, stage 3a (3) Hypertension: Code(s): I10 - Essential (primary) hypertension Category: Medical Qualifiers: Hypertension type: renovascular hypertension Qualified Code(s): I15.0 - Renovascular hypertension Plan Rita has hypertension from vascular disease. She has right renal artery stenosis. She is on Avapro. Her BP is on lower side now. I reduced her hydralazine to 25 mg tid. I will order a follow up Doppler of her renal arteries with time. She does not need renal angiogram now. She should avoid nonsteroidal anti-inflammatory medications and remain well hydrated. All questions were answered and follow-up was given . She is already on Eliquis. She is on simvastatin as well. Follow-up given Medications: Changed From hydralazine 25 mg PO TID To hydralazine 25 mg PO TID 30 days 90 tabs 3RF Coding Level of Care Code Tele Est Pt Level 4 (05598) Diagnoses Renal artery stenosis I70.1 Stage 3a chronic kidney disease N18.31 Chronic kidney disease stage 3 subtype: stage 3a (GFR 45-59) Renovascular hypertension I15.0 Hypertension type: renovascular hypertension
--- OUTSIDE RECORDS SUMMARY | 2024-11-20 12:31 | XMS_ITS | Clinical Summary ---
Author Organization [facility] Address [address] [address] Phone Care Team Providers Care Sales Lead Generator Name Role Phone Sourav Stock MD Primary Care Provider [phone] Allergies Active Allergy Reactions Criticality Noted Date Comments Atenolol 06/20/2022 Medications fluticasone (FLONASE) 50 MCG/ACT nasal spray Administer 1 spray into each nostril 1 (one) time each day Active valsartan (DIOVAN) 320 MG tablet Take 320 mg by mouth 1 (one) time each day Active metoprolol succinate XL (TOPROL-XL) 100 MG 24 hr tablet Take 150 mg by mouth 1 (one) time each day Do not crush or chew. Active simvastatin (ZOCOR) 10 MG tablet Take 10 mg by mouth every night Active dilTIAZem (CARDIZEM) 120 MG immediate release tablet Take 120 mg by mouth 1 (one) time each day Active apixaban (ELIQUIS) 5 MG tablet Take 5 mg by mouth in the morning and 5 mg in the evening. Active flecainide (TAMBOCOR) 50 MG tablet Take 50 mg by mouth in the morning and 50 mg in the evening. Active hydrALAZINE 50 MG tablet Take 150 mg by mouth in the morning and 150 mg in the evening and 150 mg before bedtime. 3 Active Active Problems Problem Noted Date Diagnosed Date Acquired hammer toe of left foot 07/20/2022 Acquired hammer toe of right foot 07/20/2022 Plantar wart 07/20/2022 Stage 3a chronic kidney disease 06/21/2022 Hypertension 06/21/2022 Abnormal renal function 06/20/2022 Immunizations Name Administration Dates Next Due Influenza (IM) Preservative Free 07/15/2021 Pfizer SARS-COV-2 08/25/2021 Family History Medical History Relation Comments Diabetes Father Hypertension Father Stroke Father Cancer Mother's Sister Relation Status Comments Father Mother Mother's Sister Social History Tobacco Use Types Packs/Day Years Used Date Smoking Tobacco: Never Smokeless Tobacco: Never Tobacco Cessation:Counseling Given: Not Answered Alcohol Use Standard Drinks/Week Comments Never 0 (1 standard drink = 0.6 oz pur e alcohol) Comments Unknown Sex and Gender Information Value Date Recorded Sex Assigned at Not on file Legal Sex Female 1:21 PM EDT Gender Identity Not on file Sexual Orientation Not on file Last Filed Vital Signs Vital Sign Reading Time Taken Comments Blood Pressure 130/80 01/10/2023 1:41 PM EDT Pulse 62 01/10/2023 1:41 PM EDT Temperature - - Respiratory Rate - - Oxygen Saturation - - Inhaled Oxygen Concentration - - Weight 87.8 kg (193 lb 9.6 oz) 01/10/2023 1:41 P M EDT Height - - Body Mass Index - - Plan of Treatment Health Maintenance Due Date Last Done Comments Breast Cancer Screening 1950 Pneumococcal Vaccine: 65+ Ye ars (1 of 2 - PCV) 1955 Colorectal Cancer Screening: Annual FOBT 1998 Colorectal Cancer Screening: Colonoscopy 1998 Colorectal Cancer Screening: Sigmoidoscopy 1998 Influenza Vaccine (#1) 2024 07/15/2021 Hepatitis B Vaccine Aged Out No longe r eligible based on patient's age to complete this topic Insurance MEDICARE [facility] MEDICARE [facility] Member Subscriber Plan / Payer (Ef fective 2020-Present) Name:Rita Courtney Relation to Subscriber:Self Name:Rita Courtney Payer ID:Not on file Type:PPO Address: [place] [id number] Care Teams Sales Lead Generator Relationship Specialty Start Date End Date Sourav Stock MD [address] [place] [id number] PCP - General Internal Medicine 04/13/22
--- OUTSIDE RECORDS SUMMARY | 2024-11-20 12:31 | XMS_ITS ---
Author Organization [facility] Address [address] [place] [address] Care Team Providers Care Material Assistant Name Role Phone Sourav Stock MD Primary Care Provider Unavailab Romina Cam Unavailable [phone] REASON FOR VISIT CX 05/09/2024 appt Encounters Encounter Location Date Provider Diagnosis [address] [address] 04/25/2024 Romina Gaytan Plan Of Treatment No Information Progress Notes * Rita RODRIGUEZ ADOB:1950 (73 yo F)Acc No.[id number]:04/25/2024 Patient:?Rodriguez, Rita Heath :1950???Age:73 Y???Sex:Female Address:[facility] [address], [place], [address] * true * Date:? Generated for Printi ng/Fawaldog/eTransmitting on:?11/20/2024 12:30 PM EST
--- OUTSIDE RECORDS SUMMARY | 2024-11-20 12:31 | XMS_ITS | Encounter Summary ---
Author Organization [facility] Address [address] [place] [address] Phone Care Team Providers Care Peanut Vendor Name Role Phone Sourav Stock MD Primary Care Provider [phone] Encounter Details Date Type Department Care Team (Late st Contact Info) Description 03/15/2023 Telephone [facility] [address] [place] [address] Gabbi Lopez Social History Tobacco Use Types Packs/Day Years Used Date Smoking Tobacco: Never Smokeless Tobacco: Never Alcohol Use Standard Drinks/Week Comments Never 0 (1 standard drink = 0.6 oz pur e alcohol) Comments Unknown Sex and Gender Information Value Date Recorded Sex Assigned at Not on file Legal Sex Female 1:21 PM EDT Gender Identity Not on file Sexual Orientation Not on file documented as of this encounter Miscellaneous Notes * Telephone Encounter - Gabbi Lopez - 03/15/2023 1:49 PM EDT PT says PCP prescribed her a new BP med IC Irbesartan 300 MG, PT would like to make sure this is okay to take, please advise. documented in this encounter Plan of Treatment Not on file documented as of this encounter Visit Diagnoses Not on filedocumented in this encounter Care Teams Peanut Vendor Relationship Specialty Start Date End Date Sourav Stock MD [address] [facility] [address] [place] [address] PCP - General Internal Medicine 04/13/22 documented as of this encounter
--- OUTSIDE RECORDS SUMMARY | 2024-11-20 12:31 | XMS_ITS | Encounter Summary ---
Author Organization [facility] Address [address] [place] [address] Phone Care Team Providers Care Sales Advisory Manager Name Role Phone Sourav Stock MD Primary Care Provider [phone] Encounter Details Date Type Department Care Team (Late st Contact Info) Description 02/28/2023 Documentation Only [facility] [address] [place] [address] Gabbi James Social History Tobacco Use Types Packs/Day Years [...] on file documented as of this encounter Plan of Treatment Not on file documented as of this encounter Visit Diagnoses Not on filedocumented in this encounter Care Teams Sales Advisory Manager Relationship Specialty Start Date End Date Sourav Stock MD [address] [address] PCP - General Internal Medicine 04/13/22 documented as of this encounter
--- OUTSIDE RECORDS SUMMARY | 2024-11-20 12:31 | XMS_ITS | Encounter Summary ---
Author Organization [facility] Address [address] [place] [address] Phone Care Team Providers Care Record Press Operator Name Role Phone Sourav Stock MD Primary Care Provider [phone] Encounter Details Date Type Department Care Team (Late st Contact Info) Description 02/16/2023 Telephone [facility] [address] [place] [address] Gabbi Lopez Social History Tobacco [...] * Telephone Encounter - Gabbi Lopez - 02/16/2023 2:56 PM EDT Ok, just wanted to check in first with you, thank you. * Telephone Encounter - Gabbi Lopez - 02/16/2023 2:44 PM EDT A referral for a 24 hr BPM came in from Dr. Gunter on 02/15/23 for this PT. PT is already booked and established so I scanned the referral to her chart. Please review if needed. documented in this encounter Plan of Treatment Not on file documented as of this encounter Visit Diagnoses Not on filedocumented in this encounter Care Teams Record Press Operator Relationship Specialty Start Date End Date Sourav Stock MD [address] [place] [address] PCP - General Internal Medicine 04/13/22 documented as of this encounter
--- OUTSIDE RECORDS SUMMARY | 2024-11-20 12:31 | XMS_ITS | Patient Health Record ---
Author Organization [facility] Address [address] [place] [address] Care Team Providers Care Flower Stripper Name Role Phone Sourav Stock MD Primary Care Provider UnavailRomina Gordillo Unavailable [phone] Allergies No Known Allergies Reason For Referral No Information Medications Medication SIG (Take, Route, Frequency, Duration) Notes Start Date End Date Status Nightsplint . . . AFO - L1930 for . Active Meloxicam 7.5 MG 1 tablet Orally Once a day Not-Taking Flecainide Acetate 50 MG as directed Orally Active Amlodipine & Diet Manage Prod Not-Taking potassium 1 tab Oral for 14 days Active Ativan Not-Taking amLODIPine Besylate Not-Taking Spironolactone 25 MG 1 tablet Orally for 30 day(s) Active Hyzaar 100-25 MG 1 tablet Orally Once a day Not-Taking Valsartan-hydroCHLOROthiaz juan 320-12.5 MG 1 tablet Orally Once a day for 30 day(s) Active Metoprolol & Diet Manage Prod 1oomg Active dilTIAZem HCl 120 MG as directed Orally Active Lipitor Not-Taking eliquis 5 mg Active Simvastatin 10 MG as directed Orally Active Immunizations Vaccine Route Administration Date Status Comme nts COVID-19 Pfizer BioNTech Vaccine Unknown 08/25/2021 Administered 1st Dose: 11/24/2020 2nd dose: 12/16/20 Influenza Unknown 07/15/2021 Administered Social History Tobacco Use: Social History Observation Description Date Details (start date - stop date) Never Smoker NA - NA Tobacco Use/Smoking Question Answer Notes Are you a: nonsmoker Additional Findings: Tobacco Non-User Current no n-smoker Alcohol Screen Question Answer Notes Did you have a drink containing alcohol in the p ast year? No Points 0 Interpretation Negative Tobacco use other than smoking: Question Answer Notes Are you an other tobacco user? No Problems Problem Type SNOMED Code ICD Code Onset Dates Problem Status W/U Status Risk Notes Problem Plantar wart (20051167) Plantar wart (B07.0) Active confirmed Problem 721735192 Hammer toe of right foot (M20.41) Active confirmed Problem 088993265 Hammer toe of left foot (M20.42) Active confirmed Encounters Encounter Location Date Provider Diagnosis [facility] [address] 04/25/2024 Romina Gaytan Plan Of Treatment Pending Test Test Name Order Date X ray : Foot, left 3V 01/10/2018 X ray : Foot, right 3V 06/17/2011 [id number] Destruction, 1-14 01/10/2018 Insurance Providers Payer Name Payer Address Payer Phone Subscriber Number Group Number Insured Name Patient Relationship to Insured Coverage Start Date Coverage End Date Medicare [employer] [address] [place] [address] [id number] Rita Courtney Self - patient is the insured [facility] [address] [place] [id number] Rita Courtney Self - patient is the insured Medical (General) History Medical History History ICD Code Cholesterol high blood pressure Anxiety disorder Sciatica Afib Surgical History Surgery Date(Month/Year)
--- OUTSIDE RECORDS SUMMARY | 2024-11-20 12:31 | XMS_ITS ---
Author Organization [facility] Address [address] [place] [address] Care Team Providers Care Olive Pitter Name Role Phone Sourav Stock MD Primary Care Provider Unavailab Romina Cam Unavailable [phone] Encounters Encounter Location Date Provider Diagnosis [address] [address] 05/09/2024 Romina Gaytan Plan Of Treatment No Information Progress Notes * JENNIFERKatrine ADOB:1950 (74 yo F)Acc No.[id number]:05/09/2024 Progress Note Patient:Rita GONZALES Provider:?Romina Gaytan DPM :1950???Age:73 Y???Sex:Female D ate:05/09/2024 Address:[facility] [place] [address] [id number] Pcp:Sourav Stock MD Subjective: * Chief Complaints: * ??? * Medical History:? Objective: * Vitals:? Assessment: Plan: * Treatment: * Images: * The named appointment provid er may or may not be the originator of this progress note, and it is not deemed complete until electronically signed by the appointment provider. Sign off status: Pending * Provider:?Romina Gaytan DPM Date:?05/2024 Generated for Jimy long/Kathi/eTransmitting on:?11/20/2024 12:30 PM EST
== END 2024-11-20 13:00 | disposition home or self-care (01) ==
PROVIDERS: PCP Internal Medicine; Visit Provider Internal Medicine Nephrology
DX: I70.1 Atherosclerosis of renal artery (principal); N18.31 Chronic kidney disease, stage 3a; I15.0 Renovascular hypertension
CPT/HCPCS: 99214

== ENCOUNTER 2024-12-11 12:37 | Outpatient (REF) | payer MEDICARE, BC, OTHER, SELFPAY ==
--- OUTSIDE RECORDS SUMMARY | 2024-12-11 14:42 | XMS_ITS | Encounter Summary ---
Author Organization [facility] Address [address] [place] [address] Phone Care Team Providers Care Land Development Project Manager Name Role Phone Sourav Stock MD Primary Care Provider [phone] Encounter Details Date Type Department Care Team (Late st Contact Info) Description 02/28/2023 Documentation Only [facility] [address] [place] [address] Gabbi James Social History Tobacco [...] on filedocumented in this encounter Care Teams Land Development Project Manager Relationship Specialty Start Date End Date Sourav Stock MD [address] [facility] [address] [place] [address] PCP - General Internal Medicine 04/13/22 documented as of this encounter
--- OUTSIDE RECORDS SUMMARY | 2024-12-11 14:42 | XMS_ITS | Encounter Summary ---
Author Organization [facility] Address [address] [place] [address] Phone Care Team Providers Care Hosiery Bagger Name Role Phone Sourav Stock MD Primary Care Provider [phone] Encounter Details Date Type Department Care Team (Late st Contact Info) Description 02/16/2023 Telephone [facility] [address] [place] [address] Gabbi Lopez Social History Tobacco [...] on filedocumented in this encounter Care Teams Hosiery Bagger Relationship Specialty Start Date End Date Sourav Stock MD [address] [place] [address] PCP - General Internal Medicine 04/13/22 documented as of this encounter
--- OUTSIDE RECORDS SUMMARY | 2024-12-11 14:42 | XMS_ITS ---
Author Organization [facility] Address [address] [place] [address] Care Team Providers Care Wig Stylist Name Role Phone Sourav Stock MD Primary Care Provider Unavailab Romina Cam Unavailable [phone] REASON FOR VISIT CX 05/09/2024 appt Encounters Encounter Location Date Provider Diagnosis [address] [address] 04/25/2024 Romina Gaytan Plan Of Treatment No Information Progress Notes * Rita RODRIGUEZ ADOB:1950 (73 yo F)Acc No.[id number]:04/25/2024 Patient:?Rodriguez, Rita Heath :1950???Age:73 Y???Sex:Female Address:[facility] [address], [place], [address] * true * Date:? Generated for Printi ng/Faxing/eTransmitting on:?12/11/2024 02:42 PM EDT
--- OUTSIDE RECORDS SUMMARY | 2024-12-11 14:42 | XMS_ITS ---
Author Organization [facility] Address [address] [place] [address] Care Team Providers Care Dockworker Name Role Phone Sourav Stock MD Primary Care Provider Unavailab Romina Cam Unavailable [phone] Encounters Encounter Location Date Provider Diagnosis [address] [address] 05/09/2024 Romina Gaytan Plan Of Treatment No Information Progress Notes * JENNIFERKatrine ADOB:1950 (74 yo F)Acc No.[id number]:05/09/2024 Progress Note Patient:Rita GONZALES Provider:?Romina Gaytan DPM :1950???Age:73 Y???Sex:Female D ate:05/09/2024 Address:[address] [place], [place] [address]T[place]one james Drmatthew [phone] Pcp:Sourav Stock MD Subjective: * Chief Complaints: [...] Gaytan DPM Date:?05/2024 Generated for Jimy long/Kathi/eTransmitting on:?12/11/2024 02:42 PM EDT
--- OUTSIDE RECORDS SUMMARY | 2024-12-11 14:42 | XMS_ITS | Patient Health Record ---
Author Organization [facility] Address [address] [facility] [address] Care Team Providers Care Stone Gang Sawyer Name Role Phone Sourav Stock MD Primary Care Provider UnavailRomina Gordillo Unavailable [phone] Allergies No Known Allergies Reason For Referral [...] W/U Status Risk Notes Problem Plantar wart (93720603) Plantar wart (B07.0) Active confirmed Problem 251464017 Hammer toe of right foot (M20.41) Active confirmed Problem [id number] Hammer toe of left foot (M20.42) Active confirmed Encounters Encounter Location Date Provider Diagnosis [facility] [address] 04/25/2024 Romina Gaytan Plan Of Treatment Pending Test Test Name Order Date X ray : Foot, left 3V 01/10/2018 X ray : Foot, right 3V 06/17/2011 [id number] Destruction, 1-14 01/10/2018 Insurance Providers Payer Name Payer Address Payer Phone Subscriber Number Group Number Insured Name Patient Relationship to Insured Coverage Start Date Coverage End Date Medicare National [employer] [address] [place] [address] [id number] Rita Courtney Self - patient is the insured [facility] [address] [place] [address] [phone] [id number] Rita Courtney Self - patient is the insured Medical (General) History Medical History History ICD Code Cholesterol high blood pressure Anxiety disorder Sciatica Afib Surgical History Surgery Date(Month/Year)
--- OUTSIDE RECORDS SUMMARY | 2024-12-11 14:42 | XMS_ITS | Clinical Summary ---
Author Organization [facility] Address [address] [address] Phone Care Team Providers Care Air Quality Chemist Name Role Phone Sourav Stock MD Primary Care Provider [phone] Allergies Active Allergy Reactions Criticality Noted Date [...] age to complete this topic Insurance MEDICARE [facility] MEDICARE [facility] Member Subscriber Plan / Payer (Ef fective 2020-Present) Name:Rita Courtney Relation to Subscriber:Self Name:Rita Courtney Payer ID:Not on file Type:PPO Address: [place] [id number] Care Teams Air Quality Chemist Relationship Specialty Start Date End Date Sourav Stock MD [address] [place] [address] PCP - General Internal Medicine 04/13/22
--- OUTSIDE RECORDS SUMMARY | 2024-12-11 14:42 | XMS_ITS | Encounter Summary ---
Author Organization [facility] Address [address] [place] [address] Phone Care Team Providers Care Rn Ostomy Name Role Phone Sourav Stock MD Primary Care Provider [phone] Encounter Details Date Type Department Care Team (Late st Contact Info) Description 03/15/2023 Telephone [facility] [address] [place] [address] Gabbi Lopez Social History Tobacco [...] on filedocumented in this encounter Care Teams Rn Ostomy Relationship Specialty Start Date End Date Sourav Stock MD [address] [facility] [address] [place] [address] PCP - General Internal Medicine 04/13/22 documented as of this encounter
[2024-12-11 16:40] LABS: Anion Gap 14 (12-20); Blood Urea Nitrogen 22 mg/dL (9-16); Carbon Dioxide 25 mmol/L (22-29); Chloride 108 mmol/L (96-108); Estimated Glomerular Filt Rate 39; Potassium 3.8 mmol/L (3.3-5.1); Sodium 143 mmol/L (135-145)
== END 2024-12-11 12:38 | disposition home or self-care (01) ==
LOC: HO.HMGCLDS 12:37
PROVIDERS: PCP Internal Medicine; Visit Provider Internal Medicine Nephrology
DX: I15.0 Renovascular hypertension (principal); N18.31 Chronic kidney disease, stage 3a; I70.1 Atherosclerosis of renal artery
CPT/HCPCS: 36415; 80051; 82565; 84520

== ENCOUNTER 2024-12-13 10:26 | Outpatient (AMB) | payer MEDICARE, BC, OTHER, SELFPAY ==
--- NOTE | 2024-12-13 10:38 | HO.NEPHOV_ITS ---
Vital Signs 12/13/24 10:42 Height 5 ft 2 in Weight 190 lb 2 oz BMI 34.8 BP 120/70 Blood Pressure Location Lt brachial Position Sitting Pulse 57 Pulse Source Pulse Oximeter Pulse Oximetry (%) 99 Oxygen Delivery Method Room Air Intake Visit Reasons: 4mon follow up w/labs-LVM Polysomnograph Tech Required: No Accompanied by: Son Allergies atenolol Allergy (Verified 12/13/24 10:42) Unknown HPI Comments Details: Rita was seen in follow-up for her chronic kidney disease and hypertension on a background of right renal artery stenosis. She has hypertension for at least 30 years. She has history of atrial fibrillation but denies any PAD, CAD, CHF . She monitors her blood pressure at home closely. She is on flecainide as well as Diltiazem. She does not have any chest pain, shortness of breath, headache, dizziness, edema or urinary symptoms. Her blood pressures have been running low and her hydralazine dosage has been cut back [facility] Medical History Hyperlipidemia Malaise and fatigue Impaired fasting glucose Essential hypertension Atrial fibrillation Acute kidney failure Family History Father Stroke Hypertension Diabetes Maternal Aunt Cancer Review of Systems Const All systems reviewed & are unremarkable except as noted in HPI and below Physical Exam Vital Signs: Last Vital Signs Pulse 57 12/13/24 10:42 BP 120/70 12/13/24 10:42 Pulse Ox 99 12/13/24 10:42 Oxygen Delivery Method Room Air 12/13/24 10:42 BMI result Body Mass Index 34.8 Const General: comfortable and no acute distress Orientation/consciousness: patient oriented x3 HEENT Head: Yes normocephalic Mouth: Normal oral and palatal mucosa present Eyes EOM: EOMs intact bilaterally Neck Neck: Yes supple Resp Auscultation: clear to auscultation bilaterally Cardio Jugular venous distension: no JVD Rate: regular rate GI Palpation (GI): Soft to palpation Auscultation: normal bowel sounds Skin General skin exam: no rashes or lesions noted Neuro General: patient oriented x3 and moves all extremities Extrem General: Yes no pedal edema Results Reviewed Nephrology Results: Sodium 143 mmol/L (135-145) 12/11/24 Potassium 3.8 mmol/L (3.3-5.1) 12/11/24 Chloride 108 mmol/L (96-108) 12/11/24 Carbon Dioxide 25 mmol/L (22-29) 12/11/24 BUN 22 mg/dL (9-16) H 12/11/24 Creatinine 1.32 mg/dL (0.5-1.4) 12/11/24 Assessment & Plan Assessment & Plan (1) Renal artery stenosis: Code(s): I70.1 - Atherosclerosis of renal artery Category: Medical (2) CKD (chronic kidney disease) stage 3, GFR 30-59 ml/min: Code(s): N18.30 - Chronic kidney disease, stage 3 unspecified Category: Medical Qualifiers: Chronic kidney disease stage 3 subtype: stage 3a (GFR 45-59) Qualified Code(s): N18.31 - Chronic kidney disease, stage 3a (3) Hypertension: Code(s): I10 - Essential (primary) hypertension Category: Medical Qualifiers: Hypertension type: renovascular hypertension Qualified Code(s): I15.0 - Renovascular hypertension Plan Rita has hypertension from vascular disease. She has right renal artery stenosis. She is on Avapro. Her BP is on lower side now. She is on hydralazine 25 mg bid, which I may reduce to 10 mg bid if her BP doesn't go up. I will order a follow up Doppler of her renal arteries with time. She does not need renal angiogram now. She should avoid nonsteroidal anti-inflammatory medications and remain well hydrated. All questions were answered and follow-up was given . She is already on Eliquis. She is on simvastatin as well. Follow-up given Coding Level of Care Code Est Pt Level 4 (45771) Diagnoses Renal artery stenosis I70.1 Stage 3a chronic kidney disease N18.31 Chronic kidney disease stage 3 subtype: stage 3a (GFR 45-59) Renovascular hypertension I15.0 Hypertension type: renovascular hypertension
[2024-12-13 10:42] VITALS: BP 120/70; PULSE 57; O2SAT 99; BMI 34.8
--- OUTSIDE RECORDS SUMMARY | 2024-12-13 11:48 | XMS_ITS | Patient Health Record ---
Author Organization [facility] Address [address] [place] [address] Care Team Providers Care Shelf Stocker Name Role Phone Sourav Stock MD Primary Care Provider UnavailRomina Gordillo Unavailable [phone] Allergies No Known Allergies Reason For Referral [...] W/U Status Risk Notes Problem Plantar wart (16850753) Plantar wart (B07.0) Active confirmed Problem 992327230 Hammer toe of right foot (M20.41) Active confirmed Problem 861931359 Hammer toe of left foot (M20.42) Active confirmed Encounters Encounter Location Date Provider Diagnosis [facility] [address] 04/25/2024 Romina Gaytan Plan Of Treatment Pending Test Test Name Order Date X ray : Foot, left 3V 01/10/2018 X ray : Foot, right 3V 06/17/2011 [id number] Destruction, 1-14 01/10/2018 Insurance Providers Payer Name Payer Address Payer Phone Subscriber Number Group Number Insured Name Patient Relationship to Insured Coverage Start Date Coverage End Date Medicare National [employer] [address] [facility] [place] [address] [id number] Rita Courtney Self - patient is the insured [facility] [address] [place] [id number] Rita Courtney Self - patient is the insured Medical (General) History Medical History History ICD Code Cholesterol high blood pressure Anxiety disorder Sciatica Afib Surgical History Surgery Date(Month/Year)
--- OUTSIDE RECORDS SUMMARY | 2024-12-13 11:48 | XMS_ITS ---
Author Organization [facility] Address [address] [place] [address] Care Team Providers Care Cinema Operator Name Role Phone Sourav Stock MD Primary Care Provider Unavailab Romina Cam Unavailable [phone] REASON FOR VISIT CX 05/09/2024 appt Encounters Encounter Location Date Provider Diagnosis [address] [address] 04/25/2024 Romina Gaytan Plan Of Treatment No Information Progress Notes * Rita RODRIGUEZ ADOB:1950 (73 yo F)Acc No.[id number]:04/25/2024 Patient:?Sherwin Rita Heath :1950???Age:73 Y???Sex:Female Address:[facility] [address], [place], [address] * true * Date:? Generated for Printi ng/Faxing/eTransmitting on:?12/13/2024 11:48 AM EDT
--- OUTSIDE RECORDS SUMMARY | 2024-12-13 11:48 | XMS_ITS ---
Author Organization [facility] Address [address] [place] [address] Care Team Providers Care Principal Cloud Architect Name Role Phone Sourav Stock MD Primary Care Provider Unavailab Romina Cam Unavailable [phone] Encounters Encounter Location Date Provider Diagnosis [address] [place] [address] [address] 05/09/2024 Romina Gaytan Plan Of Treatment No Information Progress Notes * JENNIFERKatrine ADOB:1950 (74 yo F)Acc No.[id number]:05/09/2024 Progress Note Patient:Rita GONZALES Provider:?Romina Gaytan DPM :1950???Age:73 Y???Sex:Female D ate:05/09/2024 Address:[address] [place], [place] [address] Drmatthew [phone] Pcp:Sourav Stock MD Subjective: * Chief Complaints: [...] Gaytan DPM Date:?05/2024 Generated for Jimy long/Kathi/eTransmitting on:?12/13/2024 11:48 AM EDT
--- OUTSIDE RECORDS SUMMARY | 2024-12-13 11:48 | XMS_ITS | Encounter Summary ---
Author Organization [facility] Address [address] [place] [address] Phone Care Team Providers Care Tape Recorder Repairer Name Role Phone Sourav Stock MD Primary Care Provider [phone] Encounter Details Date Type Department Care Team (Late st Contact Info) Description 03/15/2023 Telephone [facility] [address] [place] [address] Gabbi Lopez Social History Tobacco [...] on filedocumented in this encounter Care Teams Tape Recorder Repairer Relationship Specialty Start Date End Date Sourav Stock MD [address] [facility] [address] [place] [address] PCP - General Internal Medicine 04/13/22 documented as of this encounter
--- OUTSIDE RECORDS SUMMARY | 2024-12-13 11:48 | XMS_ITS | Encounter Summary ---
Author Organization [facility] Address [address] [place] [address] Phone Care Team Providers Care Cloth Printer Name Role Phone Sourav Stock MD Primary Care Provider [phone] Encounter Details Date Type Department Care Team (Late st Contact Info) Description 02/16/2023 Telephone [facility] [address] [place] [address] Gabbi Lopez Social History Tobacco [...] on filedocumented in this encounter Care Teams Cloth Printer Relationship Specialty Start Date End Date Sourav Stock MD [address] [place] [address] PCP - General Internal Medicine 04/13/22 documented as of this encounter
--- OUTSIDE RECORDS SUMMARY | 2024-12-13 11:48 | XMS_ITS | Clinical Summary ---
Author Organization [facility] Address [address] [address] Phone Care Team Providers Care Emergency Room Rn Name Role Phone Sourav Stock MD Primary Care Provider [phone] Allergies Active Allergy Reactions Criticality Noted Date [...] the evening and 150 mg before bedtime. Active Active Problems Problem Noted Date Diagnosed [...] age to complete this topic Insurance MEDICARE [facility] MEDICARE [facility] Member Subscriber Plan / Payer (Ef fective 2020-Present) Name:Rita Courtney Relation to Subscriber:Self Name:Rita Courtney Payer ID:Not on file Type:PPO Address: [place] [id number] Care Teams Emergency Room Rn Relationship Specialty Start Date End Date Sourav Stock MD [address] [place] [address] PCP - General Internal Medicine 04/13/22
--- OUTSIDE RECORDS SUMMARY | 2024-12-13 11:48 | XMS_ITS | Encounter Summary ---
Author Organization [facility] Address [address] [place] [address] Phone Care Team Providers Care Wellness Program Manager Name Role Phone Sourav Stock MD Primary Care Provider [phone] Encounter Details Date Type Department Care Team (Late st Contact Info) Description 02/28/2023 Documentation Only [facility] [address] [place] [address] Gabbi James Social History Tobacco [...] on filedocumented in this encounter Care Teams Wellness Program Manager Relationship Specialty Start Date End Date Sourav Stock MD [address] [facility] [address] [place] [address] PCP - General Internal Medicine 04/13/22 documented as of this encounter
== END 2024-12-13 11:10 | disposition home or self-care (01) ==
LOC: HO.HKA 10:27
PROVIDERS: PCP Internal Medicine; Visit Provider Internal Medicine Nephrology
DX: I70.1 Atherosclerosis of renal artery (principal); N18.31 Chronic kidney disease, stage 3a; I15.0 Renovascular hypertension
CPT/HCPCS: 99214

== ENCOUNTER → 2024-12-13 10:26 | Outpatient (BNVA) | payer MEDICARE, BC, OTHER, SELFPAY | PROVIDERS: PCP Internal Medicine; Visit Provider Internal Medicine Nephrology | DX: I15.0 Renovascular hypertension (principal); N18.31 Chronic kidney disease, stage 3a; I70.1 Atherosclerosis of renal artery | CPT/HCPCS: 99212 ==

== ENCOUNTER 2025-02-14 11:18 | Outpatient (AMB) | payer MEDICARE, BC, OTHER, SELFPAY ==
--- OUTSIDE RECORDS SUMMARY | 2025-02-14 11:41 | XMS_ITS ---
Author Organization [facility] Address [address] [place] [address] Care Team Providers Care Insurance Loss Adjuster Name Role Phone Sourav Stock MD Primary Care Provider Unavailab Romina Cam Unavailable [phone] Encounters Encounter Location Date Provider Diagnosis [address] [address] 05/09/2024 Romina Gaytan Plan Of Treatment No Information Progress Notes * JENNIFERKatrine ADOB:1950 (74 yo F)Acc No.[id number]:05/09/2024 Progress Note Patient:Rita GONZALES Provider:?Romina Gaytan DPM :1950???Age:73 Y???Sex:Female D ate:05/09/2024 Address:[address] [place], [place] [address]T[place]one james Drmatthew [phone] Pcp:Sourav Stock MD Subjective: * Chief Complaints: [...] Gaytan DPM Date:?05/2024 Generated for Jimy long/Kathi/eTransmitting on:?02/14/2025 11:41 AM EDT
--- OUTSIDE RECORDS SUMMARY | 2025-02-14 11:41 | XMS_ITS | Clinical Summary ---
Author Organization [facility] Address [address] [address] Phone Care Team Providers Care Ship Manager Name Role Phone Sourav Stock MD Primary Care Provider [phone] Allergies Active Allergy Reactions Criticality Noted Date [...] Hypertension 06/21/2022 Abnormal renal function 06/20/2022 Immunizations Immunization Administration Dates Next Due Influenza (IM) Preservative [...] Comments Breast Cancer Screening 1950 Pneumococcal Vaccine: 50+ Ye ars (1 of 2 - PCV) 1968 Colorectal Cancer Screening: Annual FOBT 1998 Colorectal Cancer Screening: Colonoscopy 1998 Colorectal Cancer Screening: Sigmoidoscopy 1998 Influenza Vaccine (Season Ended) 2025 07/15/20 21 Hepatitis B Vaccine Aged Out No longe r eligible based on patient's age to complete this topic Insurance Medicare [facility] Medicare [facility] Member Subscriber Plan / Payer (Ef fective 2020-Present) Name:Rita Courtney Relation to Subscriber:Self Name:Rita Courtney Payer ID:Not on file Type:PPO Address: [place] [id number] Care Teams Ship Manager Relationship Specialty Start Date End Date Sourav Stock MD [address] [place] [address] PCP - General Internal Medicine 04/13/22
--- OUTSIDE RECORDS SUMMARY | 2025-02-14 11:41 | XMS_ITS | Encounter Summary ---
Author Organization [facility] Address [address] [place] [address] Phone Care Team Providers Care Laundry Sorter Name Role Phone Sourav Stock MD Primary Care Provider [phone] Encounter Details Date Type Department Care Team (Late st Contact Info) Description 03/15/2023 Telephone [facility] [address] [place] [address] Gabbi Lopez Social History Tobacco [...] on filedocumented in this encounter Care Teams Laundry Sorter Relationship Specialty Start Date End Date Sourav Stock MD [address] [facility] [address] [place] [address] PCP - General Internal Medicine 04/13/22 documented as of this encounter
--- OUTSIDE RECORDS SUMMARY | 2025-02-14 11:41 | XMS_ITS ---
Author Organization [facility] Address [address] [place] [address] Care Team Providers Care Street Engineer Name Role Phone Sourav Stock MD Primary Care Provider Unavailab Romina Cam Unavailable [phone] REASON FOR VISIT CX 05/09/2024 appt Encounters Encounter Location Date Provider Diagnosis [address] [address] 04/25/2024 Romina Gaytan Plan Of Treatment No Information Progress Notes * Rita RODRIGUEZ ADOB:1950 (73 yo F)Acc No.[id number]:04/25/2024 Patient:?Rodriguez, Rita Heath :1950???Age:73 Y???Sex:Female Address:[facility] [address], [place], [address] * true * Date:? Generated for Printi ng/Faxing/eTransmitting on:?02/14/2025 11:41 AM EDT
--- OUTSIDE RECORDS SUMMARY | 2025-02-14 11:41 | XMS_ITS | Encounter Summary ---
Author Organization [facility] Address [address] [place] [address] Phone Care Team Providers Care Digital Intern Name Role Phone Sourav Stock MD Primary Care Provider Encounter Details Date Type Department Care Team (Late st Contact Info) Description 02/28/2023 Documentation Only [facility] [address] [place] [address] Gabbi James Social History Tobacco [...] on filedocumented in this encounter Care Teams Digital Intern Relationship Specialty Start Date End Date Sourav Stock MD [address] [facility] [address] [place] [address] PCP - General Internal Medicine 04/13/22 documented as of this encounter
--- NOTE | 2025-02-14 11:42 | HO.NEPHOV_ITS ---
Vital Signs 02/14/25 11:47 Height 5 ft 2 in Weight 190 lb 6 oz BMI 34.8 BP 110/64 Blood Pressure Location Lt brachial Position Sitting Pulse 56 Pulse Source Pulse Oximeter Pulse Oximetry (%) 95 Oxygen Delivery Method Room Air Intake Visit Reasons: 2 MO FU-[facility] National Investigative Producer Required: No Accompanied by: Self / Same As Patient Allergies atenolol Allergy (Verified 02/14/25 11:47) Unknown HPI Comments Details: Rita was seen in follow-up for her chronic kidney disease and hypertension on a background of right renal artery stenosis. She has hypertension for at least 30 years. She has history of atrial fibrillation but denies any PAD, CAD, CHF . She monitors her blood pressure at home closely & her blood pressures are still intermittently running quite low. She is on flecainide as well as Diltiazem. She does not have any chest pain, shortness of breath, headache, dizziness, edema or urinary symptoms. Her blood pressures have been running low and her hydralazine dosage has been cut back further by PCP [facility] Medical History Hyperlipidemia Malaise and fatigue Impaired fasting glucose Essential hypertension Atrial fibrillation Acute kidney failure Family History Father Stroke Hypertension Diabetes Maternal Aunt Cancer Review of Systems Const All systems reviewed & are unremarkable except as noted in HPI and below Physical Exam Vital Signs: Last Vital Signs Pulse 56 02/14/25 11:47 BP 110/64 02/14/25 11:47 Pulse Ox 95 02/14/25 11:47 Oxygen Delivery Method Room Air 02/14/25 11:47 BMI result Body Mass Index 34.8 Const General: comfortable and no acute distress Orientation/consciousness: patient oriented x3 HEENT Head: Yes normocephalic Mouth: Normal oral and palatal mucosa present Eyes EOM: EOMs intact bilaterally Neck Neck: Yes supple Resp Auscultation: clear to auscultation bilaterally Cardio Jugular venous distension: no JVD Rate: regular rate GI Palpation (GI): Soft to palpation Auscultation: normal bowel sounds General: Yes no CVA tenderness Back/Spine/Pelvis Back: no CVA tenderness Skin General skin exam: no rashes or lesions noted Neuro General: patient oriented x3 and moves all extremities Extrem General: Yes no pedal edema Results Reviewed Nephrology Results: Sodium 143 mmol/L (135-145) 12/11/24 Potassium 3.8 mmol/L (3.3-5.1) 12/11/24 Chloride 108 mmol/L (96-108) 12/11/24 Carbon Dioxide 25 mmol/L (22-29) 12/11/24 BUN 22 mg/dL (9-16) H 12/11/24 Creatinine 1.32 mg/dL (0.5-1.4) 12/11/24 Assessment & Plan Assessment & Plan (1) CKD (chronic kidney disease) stage 3, GFR 30-59 ml/min: Code(s): N18.30 - Chronic kidney disease, stage 3 unspecified Category: Medical Qualifiers: Chronic kidney disease stage 3 subtype: stage 3a (GFR 45-59) Qualified Code(s): N18.31 - Chronic kidney disease, stage 3a (2) Hypertension: Code(s): I10 - Essential (primary) hypertension Category: Medical Qualifiers: Hypertension type: renovascular hypertension Qualified Code(s): I15.0 - Renovascular hypertension (3) Renal artery stenosis: Code(s): I70.1 - Atherosclerosis of renal artery Category: Medical Plan Rita has hypertension from vascular disease. She has right renal artery stenosis. She is on Avapro. Her BP is on lower side now. She is on hydralazine 10 mg bid, which I discontinued today . I plan to do a serum cortisol if her BP still runs low. Also she may need an ECHO. I will order a follow up Doppler of her renal arteries with time. She does not need renal angiogram now. She should avoid nonsteroidal anti-inflammatory medications and remain well hydrated. All questions were answered and follow-up was given . She is already on Eliquis. She is on simvastatin as well. Follow-up given Coding Level of Care Code Est Pt Level 4 (55968) Diagnoses Stage 3a chronic kidney disease N18.31 Chronic kidney disease stage 3 subtype: stage 3a (GFR 45-59) Renovascular hypertension I15.0 Hypertension type: renovascular hypertension Renal artery stenosis I70.1
--- OUTSIDE RECORDS SUMMARY | 2025-02-14 11:42 | XMS_ITS | Encounter Summary ---
Author Organization [facility] Address [address] [place] [address] Phone Care Team Providers Care Quality Control Specialist Name Role Phone Sourav Stock MD Primary Care Provider [phone] Encounter Details Date Type Department Care Team (Late st Contact Info) Description 02/16/2023 Telephone [facility] [address] [place] [address] Gabbi Lopez Social History Tobacco [...] on filedocumented in this encounter Care Teams Quality Control Specialist Relationship Specialty Start Date End Date Sourav Stock MD [address] [place] [address] PCP - General Internal Medicine 04/13/22 documented as of this encounter
--- OUTSIDE RECORDS SUMMARY | 2025-02-14 11:42 | XMS_ITS | Encounter Summary ---
Author Organization [facility] Address [address] [place] [address] Care Team Providers Care Machine Clothing Man Name Role Phone Sourav Stock MD Primary Care Provider [phone] Reason for Visit * Reason Onset Date Comments stress test / ep eval 01/28/2025 Encounter Details Date Type Department Care Team (Late st Contact Info) Description 01/28/2025 Telephone [facility] [address] [facility] [address] [place] [address] Kimberly Gentile NP [address] [facility] [address] [place], [place] [id number] stress test / ep eval Social History Tobacco Use Types Packs/Day Years Used Date Smoking Tobacco: Never Smokeless Tobacco: Never Alcohol Use Standard Drinks/Week Comments Never 0 (1 standard drink = 0.6 oz pur e alcohol) Comments Unknown Sex and Gender Information Value Date Recorded Sex Assigned at Not on file Legal Sex Female 2:28 AM EST Gender Identity Not on file Sexual Orientation Not on file documented as of this encounter Progress Notes * Kimberly Gentile NP - 02/13/2025 4:26 PM EDT Excellent. Thank you April--can you pls book EP eval for afib, on flecainide therapy, alternate strategies for controlling afib * Damaris Velazquez MA - 02/11/2025 10:36 AM EDT The patient would like to talk to her furniture salesperson on Monday about having the stress test. She would like to also speak to her primary care doctor about having a stress test also. That appt is bookedin a few weeks. She did not give me the date. She is agreeable to have an EP eval to discuss possible ablation. * Bob Brown - 02/11/2025 9:30 AM EDT Patient called to return Betty's call. Please give her a call back at [phone] at your earliest convenience. * Damaris Velazquez MA - 02/10/2025 11:03 AM EDT I have left another voicemail asking the patient to call back * Damaris Velazquez MA - 02/06/2025 10:56 AM EDT I have left a voicemail asking the patient to call back to discuss Kimberly's message * Kimberly Gentile NP - 01/28/2025 12:11 PM EDT Betty, Can you please call the patient midweek next week and ask if she has made a decision about pursuinga stress test to continue to take her flecainide versus EP evaluation for consideration of ablation. Thank you! documented in this encounter Plan of Treatment Not on file documented as of this encounter Visit Diagnoses Not on filedocumented in this encounter Care Teams Machine Clothing Man Relationship Specialty Start Date End Date Sourav Stock MD [address] [place] [address] PCP - General Internal Medicine 01/04/25 documented as of this encounter
--- OUTSIDE RECORDS SUMMARY | 2025-02-14 11:42 | XMS_ITS | Patient Health Record ---
Author Organization [facility] Address [address] [place] [address] Care Team Providers Care Itinerant Teacher Assistant Name Role Phone Sourav Stock MD Primary Care Provider UnavailRomina Gordillo Unavailable [phone] Allergies No Known Allergies Reason For Referral [...] W/U Status Risk Notes Problem Plantar wart (05656250) Plantar wart (B07.0) Active confirmed Problem 298076722 Hammer toe of right foot (M20.41) Active confirmed Problem [id number] Hammer toe of left foot (M20.42) Active confirmed Encounters Encounter Location Date Provider Diagnosis [facility] [address] 04/25/2024 Romina Gaytan Plan Of Treatment Pending Test Test Name Order Date X ray : Foot, left 3V 01/10/2018 X ray : Foot, right 3V 06/17/2011 [id number] Destruction, 1-14 01/10/2018 Insurance Providers Payer Name Payer Address Payer Phone Subscriber Number Group Number Insured Name Patient Relationship to Insured Coverage Start Date Coverage End Date Medicare National [employer] [address] [facility] [place] [address] [id number] Rita Courtney Self - patient is the insured [facility] [address] [place] [id number] Rita Courtney Self - patient is the insured Medical (General) History Medical History History ICD Code Cholesterol high blood pressure Anxiety disorder Sciatica Afib Surgical History Surgery Date(Month/Year)
--- OUTSIDE RECORDS SUMMARY | 2025-02-14 11:42 | XMS_ITS | Clinical Summary ---
Author Organization [address] [place] [address] Address [address] [place] [address] Phone Care Team Providers Care Moto Mix Operator Name Role Phone Sourav Stock MD Primary Care Provider Allergies No known active allergies Medications dilTIAZem CD (CARDIZEM CD) 120 mg 24 hr capsule Take 1 capsule (120 mg total) by mouth 1 (one) time each day. 05/27/2022 Active flecainide (TAMBOCOR) 50 mg tablet Take 1 tablet (50 mg total) by mouth every 12 (twelve) hours. Active hydrALAZINE (APRESOLINE) 10 mg tablet Take 1 tablet (10 mg total) by mouth 2 (two) times a day. 01/23/2025 Active irbesartan (AVAPRO) 150 mg tablet Take 1 tablet (150 mg total) by mouth 1 (one) time each day. 11/07/2024 Active metoprolol succinate (TOPROL-XL) 100 mg 24 hr tablet Take 1.5 tablets (150 mg total) by mouth 1 (one) time each day. Active simvastatin (ZOCOR) 10 mg tablet Take 1 tablet (10 mg total) by mouth at bedtime. Active spironolactone (ALDACTONE) 25 mg tablet Take 0.5 tablets (12.5 mg total) by mouth 1 (one) time each day. Active apixaban (ELIQUIS) 5 mg tablet Take 1 tablet (5 mg total) by mouth 2 (two) times a day. Active Active Problems Problem Noted Date Diagnosed Date Left ventricular hypertrophy by electrocardiogra m 12/18/2023 Abnormal electrocardiogram 12/18/2023 Stage 3b chronic kidney disease (CMS/HCC V24, CM S/HCC V28) 12/18/2023 Paroxysmal atrial fibrillation (CMS/HCC V24, CMS /HCC V28) 06/01/2021 Overview (01/28/2025): - chronically anticoagulated with apixaban -Rhythm control strategy with flecainide and diltiazem -Normal pharmacologic nuclear stress test in 07/2021 -Most recent echocardiogram 01/2024 showed normal LVEF 60-65%, normal LV size and thickness, no wall motion abnormalities without hemodynamically significant valve disease Assessment & Plan (01/28/2025 12:08 PM EDT): The patient remains in sinus rhythm on EKG. Her ME interval is slightly prolonged when compared to last EKG. However, she has not had any recurrence of her atrial fibrillation, and therefore, for now, we will continue her flecainide and diltiazem at current doses. She remains anticoagulated with apixaban, and she has not had any bleeding issues. She does not require dose adjustment. I discussed the need for periodic ischemic evaluation with class I antiarrhythmics. She states that she was quite symptomatic with her pharmacologic nuclear stress test in 2020 and is somewhat hesitant to repeat the test. We discussed the risks associated with class Ic antiarrhythmics in the setting of CAD. Alternatively, I offered to refer her to electrophysiology for consideration of ablation, as this would likely eliminate the need for antiarrhythmic therapy. Even if she agrees to the stress test now, she would need to repeat the stress test in a handful of years as periodic surveillance while on flecainide. I am hesitant to order a coronary CTA given her underlying renal dysfunction. And also, ischemic evaluation would need to be repeated down the road again as well. She is going to talk to her daughter and decide between EP evaluation for discussion of ablation and nuclear stress test. We will follow-up with her next week for her decision. Hypertension 06/01/2021 Assessment & Plan (01/28/2025 12:08 PM EDT): Patient's blood pressure is well-controlled on current doses of diltiazem, hydralazine, ARB, beta-kiera and MRA. Continue Hyperlipemia 06/01/2021 Assessment & Plan (01/28/2025 12:09 PM EDT): Well-controlled lipid profile on current dose statin without known coronary artery disease. Continue Low back pain 06/25/2014 Lumbar radicular pain 06/25/2014 Trochanteric bursitis 06/25/2014 Encounters Date Type Department Care Team Description 01/28/2025 11:00 AM EDT Office Visit [facility] [address] [place] [address] Kimberly Gentile NP Paroxysmal atrial fibrillation (CMS/HCC V24, CMS/HCC V28) (Primary Dx); Primary hypertension; Mixed hyperlipidemia 01/28/2025 Telephone [facility] [address] [place] [address] Kimberly Gentile NP stress test / ep eval from Last 3 Months Medical History Medical History Date Comments Essential hypertension DX:Essent ial hypertension Hyperlipidemia DX:Hyperlipidemi a Hypertension 06/01/2021 Last Assessment & Plan: Slightly elevated today, she is quite anxious. We are increasing BB as above. Hyperlipemia 06/01/2021 Last Assessment & Plan: Last lipid panel from 03/21, total cholesterol 197, HDL 78, LDL 87.She has labs with update this. Continue statin. Family History Medical History Relation Name Comments Autoimmune disease Neg Hx Breast cancer Neg Hx Colon cancer Neg Hx Coronary artery disease Neg Hx Diabetes Neg Hx Heart attack Neg Hx Heart failure Neg Hx Hyperlipidemia Neg Hx Hypertension Neg Hx Mental illness Neg Hx Prostate cancer Neg Hx Sleep apnea Neg Hx Thyroid disease Neg Hx Social History Tobacco Use Types Packs/Day Years Used Date Smoking Tobacco: Never Smokeless Tobacco: Never Alcohol Use Standard Drinks/Week Comments Never 0 (1 standard drink = 0.6 oz pur e alcohol) Comments Unknown Sex and Gender Information Value Date Recorded Sex Assigned at Not on file Legal Sex Female 2:28 AM EST Gender Identity Not on file Sexual Orientation Not on file Obstetrics History Last Filed Vital Signs Vital Sign Reading Time Taken Comments Blood Pressure 130/98 01/28/2025 11:07 AM EDT Pulse 59 01/28/2025 11:07 AM EDT Temperature - - Respiratory Rate - - Oxygen Saturation 99% 01/28/2025 11:07 AM EDT Inhaled Oxygen Concentration - - Weight 86.6 kg (191 lb) 01/28/2025 11:07 AM EDT Height 152.4 cm (5') 01/28/2025 11:07 AM EDT Body Mass Index 37.3 01/28/2025 11:07 AM EDT Plan of Treatment Health Maintenance Due Date Last Done Comments DTaP,Tdap,and Td Vaccines (1 - Tdap) 1968 Pneumococcal Vaccine: 50+ Years (1 of 1 - PCV) 1999 Zoster Vaccines (1 of 2) 1999 Cholesterol Screening (Lipid Panel) 09/04/2022 Colorectal Cancer Screening: Colonoscopy 09/04/2022 Depression Screening 09/04/2022 Falls Risk Assessment 09/04/2022 Hepatitis C Screening 09/04/2022 Medicare Annual Wellness Visit 09/04/2022 Osteoporosis Screening (Bone Density Screening) 09/04/2022 Social Influencers of Health Screening 09/04/2022 Hypertension/CHF/CAD Annual BMP Blood Test 09/14/2022 COVID-19 Vaccine ( season) 2024 10/10/2022, 02/04/2022, 08/25/2021, Additional history exists RSV Immunization Adult Patients (1 - 1-dose 75+ series) 2024 Influenza Vaccine Completed 08/06/2024, , 07/11/2022, Additional history exists HIB Vaccines Aged Out No longer eligi ble based on patient's age to complete this topic HPV Vaccines Aged Out No longer eligi ble based on patient's age to complete this topic Hepatitis A Vaccines Aged Out No long er eligible based on patient's age to complete this topic Hepatitis B Vaccines Aged Out No long er eligible based on patient's age to complete this topic IPV Vaccines Aged Out No longer eligi ble based on patient's age to complete this topic MMR Vaccines Aged Out No longer eligi ble based on patient's age to complete this topic Meningococcal ACWY Vaccine Aged Out N o longer eligible based on patient's age to complete this topic Meningococcal B Vaccine Aged Out No l onger eligible based on patient's age to complete this topic RSV Immunization Patients Under 20 months Aged Out No longer eligible based on patient's age to complete this topic Varicella Vaccines Aged Out No longer eligible based on patient's age to complete this topic Procedures Procedure Name Priority Date/Time Associated Diagnosis Comments ECG 12-LEAD Routine 01/28/2025 12:12 PM EDT Paroxysmal atrial fibrillation (CMS/HCC V24, CMS/HCC V28) EXTERNAL CLINICAL LAB Routine 01/22/2025 2:02 PM EDT from Last 3 Months Results * ECG 12 lead (01/28/2025 12:12 PM EDT) Pathologist [facility] Ventricular Rate ECG 59 BPM GEMUSE Atrial Rate 59 BPM GEMUSE P-R Interval 238 ms GEMUSE QRS Duration 110 ms GEMUSE Q-T Interval 432 ms GEMUSE QTc 427 ms GEMUSE P Wave [place] 65 degrees GEMUSE R [place] -42 degrees GEMUSE T [place] 46 degrees GEMUSE ECG Interpretation Sinus bradycardia with 1st degree A-V block Left axis deviation Left ventricular hypertrophy with repolarization abnormality Abnormal ECG When compared with ECG of 07-MAY-2021 20:39, ME interval has increased on flecainide and diltiazem Confirmed by Shimon KWAN, ISELA ([id number]) on 01/28/2025 5:13:13 PM GEMUSE 01/28/2025 11:1 1 AM EDT 01/28/2025 5:13 PM EDT Kimberly Gentile NP ECG ORDERABLES Edited Result - Final GEMUSE * External clinical lab (01/22/2025 2:02 PM EDT) us Historical Provider LAB BLOOD ORDERABLES Ayesha l Result from Last 3 Months Insurance MEDICARE [facility] ([facility]) Care Teams Moto Mix Operator Relationship Specialty Start Date End Date Sourav Stock MD [address] [place] [id number] PCP - General Internal Medicine 01/04/25
[2025-02-14 11:47] VITALS: BP 110/64; PULSE 56; O2SAT 95; BMI 34.8
== END 2025-02-14 12:17 | disposition home or self-care (01) ==
LOC: HO.HKA 11:19
PROVIDERS: PCP Internal Medicine; Visit Provider Internal Medicine Nephrology
DX: I12.9 Hypertensive chronic kidney disease with stage 1 through stage 4 chronic kidney disease, or unspecified chronic kidney disease (principal); N18.31 Chronic kidney disease, stage 3a; I70.1 Atherosclerosis of renal artery
CPT/HCPCS: 99214

== ENCOUNTER → 2025-02-14 11:18 | Outpatient (BNVA) | payer MEDICARE, BC, OTHER, SELFPAY | PROVIDERS: PCP Internal Medicine; Visit Provider Internal Medicine Nephrology | DX: I15.0 Renovascular hypertension (principal); I48.91 Unspecified atrial fibrillation; I70.1 Atherosclerosis of renal artery; N18.31 Chronic kidney disease, stage 3a; Z79.899 Other long term (current) drug therapy | CPT/HCPCS: 99212 ==

== ENCOUNTER 2025-02-26 14:34 | Outpatient (AMB) | payer MEDICARE, BC, OTHER, SELFPAY ==
--- NOTE | 2025-02-26 14:35 | HO.NEPHOV_ITS ---
Vital Signs 02/26/25 14:36 Height 5 ft 2 in Weight 191 lb BMI 34.9 BP 126/70 Blood Pressure Location Lt brachial Position Sitting Pulse 66 Pulse Source Pulse Oximeter Pulse Oximetry (%) 98 Oxygen Delivery Method Room Air Intake Visit Reasons: 2wk follow-up No labs-LVM Race Starter Required: No Accompanied by: Self / Same As Patient Allergies atenolol Allergy (Verified 02/26/25 14:39) Unknown HPI Comments Details: Rita was seen in follow-up for her chronic kidney disease and hypertension on a background of right renal artery stenosis. She has hypertension for at least 30 years. She has history of atrial fibrillation but denies any PAD, CAD, CHF . She monitors her blood pressure at home closely & her blood pressures are still intermittently running quite low. She is on flecainide as well as Diltiazem. She does not have any chest pain, shortness of breath, headache, dizziness, edema or urinary symptoms. Her blood pressures have been running low even after D/Cing hydralazine. [facility] Medical History Hyperlipidemia Malaise and fatigue Impaired fasting glucose Essential hypertension Atrial fibrillation Acute kidney failure Family History Father Stroke Hypertension Diabetes Maternal Aunt Cancer Review of Systems Const All systems reviewed & are unremarkable except as noted in HPI and below Physical Exam Vital Signs: Last Vital Signs Pulse 66 02/26/25 14:36 BP 126/70 02/26/25 14:36 Pulse Ox 98 02/26/25 14:36 Oxygen Delivery Method Room Air 02/26/25 14:36 BMI result Body Mass Index 34.9 Const General: comfortable and no acute distress Orientation/consciousness: patient oriented x3 HEENT Head: Yes normocephalic Mouth: Normal oral and palatal mucosa present Eyes EOM: EOMs intact bilaterally Neck Neck: Yes supple Resp Auscultation: clear to auscultation bilaterally Cardio Jugular venous distension: no JVD Rate: regular rate GI Palpation (GI): Soft to palpation Auscultation: normal bowel sounds General: Yes no CVA tenderness Back/Spine/Pelvis Back: no CVA tenderness Skin General skin exam: no rashes or lesions noted Neuro General: patient oriented x3 and moves all extremities Extrem General: Yes no pedal edema Results Reviewed Nephrology Results: Sodium 143 mmol/L (135-145) 12/11/24 Potassium 3.8 mmol/L (3.3-5.1) 12/11/24 Chloride 108 mmol/L (96-108) 12/11/24 Carbon Dioxide 25 mmol/L (22-29) 12/11/24 BUN 22 mg/dL (9-16) H 12/11/24 Creatinine 1.32 mg/dL (0.5-1.4) 12/11/24 Assessment & Plan Assessment & Plan (1) CKD (chronic kidney disease) stage 3, GFR 30-59 ml/min: Code(s): N18.30 - Chronic kidney disease, stage 3 unspecified Category: Medical Qualifiers: Chronic kidney disease stage 3 subtype: stage 3a (GFR 45-59) Qualified Code(s): N18.31 - Chronic kidney disease, stage 3a (2) Hypertension: Code(s): I10 - Essential (primary) hypertension Category: Medical Qualifiers: Hypertension type: renovascular hypertension Qualified Code(s): I15.0 - Renovascular hypertension (3) Renal artery stenosis: Code(s): I70.1 - Atherosclerosis of renal artery Category: Medical Plan Rita has hypertension from vascular disease. She has right renal artery stenosis. She is on Avapro. Her BP is on lower side now even after D/Cing hydralazine. I reduced her Avapro to 75 mg daily. I plan to do a serum cortisol if her BP still runs low. Also she may need an ECHO. I will order a follow up Doppler of her renal arteries with time. She does not need renal angiogram now. She should avoid nonsteroidal anti-inflammatory medications and remain well hydrated. All questions were answered and follow-up was given . She is already on Eliquis. She is on simvastatin as well. Follow-up given Orders: Orders Creatinine 3 Months I15.0 - Renovascular hypertension, I70.1 - Atherosclerosis of renal artery, N18.31 - Chronic kidney disease, stage 3a Blood Urea Nitrogen 3 Months I15.0 - Renovascular hypertension, I70.1 - Atherosclerosis of renal artery, N18.31 - Chronic kidney disease, stage 3a Electrolytes 3 Months I15.0 - Renovascular hypertension, I70.1 - Atherosclerosis of renal artery, N18.31 - Chronic kidney disease, stage 3a Medications: Changed From irbesartan 150 mg PO DAILY 90 days 90 tabs 4RF To irbesartan 75 mg PO DAILY 90 days 90 tabs 4RF Coding Level of Care Code Est Pt Level 4 (95779) Diagnoses Stage 3a chronic kidney disease N18.31 Chronic kidney disease stage 3 subtype: stage 3a (GFR 45-59) Renovascular hypertension I15.0 Hypertension type: renovascular hypertension Renal artery stenosis I70.1
[2025-02-26 14:36] VITALS: BP 126/70; PULSE 66; O2SAT 98; BMI 34.9
--- OUTSIDE RECORDS SUMMARY | 2025-02-26 15:26 | XMS_ITS | Encounter Summary ---
Author Organization [facility] Address [address] [place] [address] Phone Care Team Providers Care Reed Cleaner Name Role Phone Sourav Stock MD Primary Care Provider [phone] Encounter Details Date Type Department Care Team (Late st Contact Info) Description 02/28/2023 Documentation Only [facility] [address] [place] [address] Gabbi James Social History Tobacco [...] on filedocumented in this encounter Care Teams Reed Cleaner Relationship Specialty Start Date End Date Sourav Stock MD [address] [facility] [address] [place] [address] PCP - General Internal Medicine 04/13/22 documented as of this encounter
== END 2025-02-26 14:54 | disposition home or self-care (01) ==
LOC: HO.HKA 14:35
PROVIDERS: PCP Internal Medicine; Visit Provider Internal Medicine Nephrology
DX: I12.9 Hypertensive chronic kidney disease with stage 1 through stage 4 chronic kidney disease, or unspecified chronic kidney disease (principal); N18.31 Chronic kidney disease, stage 3a; I70.1 Atherosclerosis of renal artery
CPT/HCPCS: 99214

== ENCOUNTER → 2025-02-26 14:34 | Outpatient (BNVA) | payer MEDICARE, BC, OTHER, SELFPAY | PROVIDERS: PCP Internal Medicine; Visit Provider Internal Medicine Nephrology | DX: I15.0 Renovascular hypertension (principal); I48.91 Unspecified atrial fibrillation; I73.9 Peripheral vascular disease, unspecified; I70.1 Atherosclerosis of renal artery; N18.31 Chronic kidney disease, stage 3a | CPT/HCPCS: 99212 ==

== ENCOUNTER 2025-05-26 10:10 | Outpatient (REF) | payer MEDICARE, BC, OTHER, SELFPAY ==
--- OUTSIDE RECORDS SUMMARY | 2025-05-26 11:19 | XMS_ITS | Clinical Summary ---
Author Organization [address] [place] [address] [place] [address] Phone Care Team Providers Care Video Production Intern Name Role Phone Dixon Stock MD Primary Care Provider [phone] Allergies Active Allergy Reactions Criticality Noted Date Comments Atenolol 06/20/2022 Medications dilTIAZem CD (CARDIZEM CD) 120 mg 24 hr capsule Take 1 capsule (120 mg total) by mouth 1 (one) time each day. 2 Active flecainide (TAMBOCOR) 50 mg tablet Take 1 tablet (50 mg total) by mouth every 12 (twelve) hours. Active irbesartan (AVAPRO) 150 mg tablet Take 0.5 tablets (75 mg total) by mouth 1 (one) time each day. 5 Active metoprolol succinate (TOPROL-XL) 100 mg 24 [...] mouth 2 (two) times a day. Active hydrALAZINE (APRESOLINE) 10 mg tablet Take 1 tablet (10 mg total) by mouth 2 (two) times a day. 05/13/20 25 Discontinued Active Problems Problem Noted Date Diagnosed Date [...] remains in sinus rhythm on EKG. Her DC interval is slightly prolonged when compared to [...] Encounters Date Type Department Care Team Description 05/13/2025 11:10 AM EDT Consult [facility] Cardiology [facility] [address] [facility] [address] [place] [phone] Dixon Logan MD Paroxysmal atrial fibrillation (CMS/HCC V24, CMS/HCC V28) (Primary Dx) 03/28/2025 Telephone [facility] [address] [facility] [address] [place] [phone] Dixon Logan MD called pt to r/s her 05/05/[address] Logan 03/19/2025 Telephone [facility] Cardiology [facility] [address] [place] [phone] Dixon Stock MD Medical Records from Last 3 Months Medical History Medical [...] Sign Reading Time Taken Comments Blood Pressure 130/84 05/13/2025 11:07 AM EDT Pulse 63 05/13/2025 11:07 AM EDT Temperature - - Respiratory Rate - - Oxygen Saturation 98% 05/13/2025 11:07 AM EDT Inhaled Oxygen Concentration - - Weight 85.7 kg (189 lb) 05/13/2025 11:07 AM EDT Height 152.4 cm (5') 05/13/2025 11:07 AM EDT Body Mass Index 36.91 05/13/2025 11:07 AM EDT Plan of Treatment Health Maintenance Due Date Last Done Comments DTaP,Tdap,and Td Vaccines (1 - Tdap) 1968 Zoster Vaccines (1 of 2) 1968 Pneumococcal Vaccine: 50+ Years (1 of 1 - PCV) 1999 Cholesterol Screening (Lipid Panel) 09/04/2022 Colorectal Cancer Screening: Colonoscopy 09/04/2022 Falls Risk Assessment 09/04/2022 Hepatitis C Screening 09/04/2022 Medicare Annual Wellness Visit 09/04/2022 Osteoporosis Screening (Bone Density Screening) 09/04/2022 Social Influencers of Health Screening 09/04/2022 Hypertension/CHF/CAD Annual BMP Blood Test 09/14/2022 COVID-19 Vaccine ( season) 2024 10/10/2022, 02/04/2022, 08/25/2021, Additional history exists Depression Screening 10/02/2024 RSV Immunization Adult Patients (1 - 1-dose 75+ series) 2024 Influenza Vaccine (#1) 2025 , 08/08/2023, 07/11/2022, Additional history exists HIB Vaccines Aged [...] Date/Time Associated Diagnosis Comments ECG 12-LEAD Routine 05/13/2025 12:14 PM EDT Paroxysmal atrial fibrillation (CMS/HCC V24, CMS/HCC V28) from Last 3 Months Results * ECG 12 lead (05/13/2025 12:14 PM EDT) Ventricular Rate ECG 63 BPM GEMUSE Atrial Rate 63 BPM GEMUSE P-R Interval 260 ms GEMUSE QRS Duration 110 ms GEMUSE Q-T Interval 414 ms GEMUSE QTc 423 ms GEMUSE P Wave [place] 91 degrees GEMUSE R [place] -40 degrees GEMUSE T [place] 78 degrees GEMUSE ECG Interpretation Sinus rhythm with 1st degree A-V block Left axis deviation Left ventricular hypertrophy with repolarization abnormality Abnormal ECG When compared with ECG of 28-JAN-2025 11:11, T wave amplitude has increased in Inferior leads T wave inversion now evident in Lateral leads Confirmed by Shimon LOGAN, DIXON ([id number]) on 05/20/2025 3:52:45 PM GEMUSE 05/13/2025 11:2 2 AM EDT 05/20/2025 3:52 PM EDT us Dixon Logan MD ECG ORDERABLES Edited Result - Final GEMUSE from Last 3 Months Insurance MEDICARE [facility] Care Teams Video Production Intern Relationship Specialty Start Date End Date Dixon Stock MD [address] [place] [id number] PCP - General Internal Medicine 01/04/25
--- OUTSIDE RECORDS SUMMARY | 2025-05-26 11:19 | XMS_ITS | Encounter Summary ---
Author Organization [facility] Address [address] [place] [address] Phone Care Team Providers Care Car Scrubber Name Role Phone Sourav Stock MD Primary Care Provider [phone] Encounter Details Date Type Department Care Team (Late st Contact Info) Description 02/28/2023 Documentation Only [facility] [address] [place] [address] Gabbi James Social History Tobacco [...] on filedocumented in this encounter Care Teams Car Scrubber Relationship Specialty Start Date End Date Sourav Stock MD [address] [facility] [address] [place] [address] PCP - General Internal Medicine 04/13/22 documented as of this encounter
[2025-05-26 11:51] LABS: Anion Gap 13 (12-20); Blood Urea Nitrogen 25 mg/dL (9-16); Carbon Dioxide 27 mmol/L (22-29); Chloride 105 mmol/L (96-108); Estimated Glomerular Filt Rate 41; Potassium 4.1 mmol/L (3.3-5.1); Sodium 141 mmol/L (135-145)
== END 2025-05-26 10:11 | disposition home or self-care (01) ==
LOC: HO.10HDL 10:10
PROVIDERS: Visit Provider Internal Medicine Nephrology
DX: I70.1 Atherosclerosis of renal artery (principal); I15.0 Renovascular hypertension; N18.31 Chronic kidney disease, stage 3a
CPT/HCPCS: 36415; 80051; 82565; 84520

== ENCOUNTER 2025-05-28 09:58 | Outpatient (AMB) | payer MEDICARE, BC, OTHER, SELFPAY ==
--- OUTSIDE RECORDS SUMMARY | 2024-05-09 11:00 | XMS_ITS ---
Author Organization [facility] Address [address] [place] [address] Care Team Providers Care Abseiling Instructor Name Role Phone Sourav Stock MD Primary Care Provider Unavailab Romina Cam Unavailable [phone] Encounters Encounter Location Date Provider Diagnosis [address] [address] 05/09/2024 Romina Gaytan Plan Of Treatment No Information Progress Notes * Rita RODRIGUEZ ADOB:1950 (74 yo F)Acc No.[id number]:05/09/2024 Progress Note Patient: Rita BAÑUELOS Provider: David Gaytan DPM :1950 A ge:73 Y S ex:Female Date:05/09/2024 Address:[address] [place] [address] Tyrone Chávezmatthew [id number] Pcp:Sourav Stock MD Subjective: * Chief Complaints: * * Medical History: Objective: * Vitals: Assessment: Plan: * Treatment: * Images: * The named appointment provid er may or may not be the originator of this progress note, and it is not deemed complete until electronically signed by the appointment provider. Sign off status: Pending * Provider: David Gaytan DPM Date: 05/09/2024 Generated for Printi ng/Faxing/eTransmitting on: 05/28/2025 10:43 AM EDT
--- OUTSIDE RECORDS SUMMARY | 2025-03-19 06:02 | XMS_ITS ---
Author Organization [facility] Address [facility] [place], [place] [id number] Care Team Providers Care Rotary Peel Oven Tender Name Role Phone DIXON REYES Primary Care Provider REASON FOR VISIT (2) Consult note Encounters Encounter Location Date Provider Diagnosis [address] [address] 03/19/2025 DIXON REYES PLAN OF TREATMENT Next Appt Details Provider Name:DIXON REYES , 06/03/2025 09:45:00 AM, [address] [place] [address], [phone], Provider Name:DIXON REYES , 08/21/2025 01:45:00 PM, [address] [place] [address], [phone],
--- OUTSIDE RECORDS SUMMARY | 2025-04-22 09:19 | XMS_ITS ---
Author Organization [facility] Address [facility] [place], [place] [id number] Care Team Providers Care Reconcilement Clerk Name Role Phone DIXON REYES Primary Care Provider [phone] REASON FOR VISIT (3)[facility] blood work Encounters Encounter Location Date Provider Diagnosis [address] [place] [address] 04/22/2025 DIXON REYES PLAN OF TREATMENT Next Appt Details Provider Name:DIXON REYES , 06/03/2025 09:45:00 AM, [address] [place] [address], [phone], Provider Name:DIXON REYES , 08/21/2025 01:45:00 PM, [address] [place] [address], [phone],
--- OUTSIDE RECORDS SUMMARY | 2025-04-23 23:34 | XMS_ITS ---
Author Organization [facility] Address [facility] [place], [place] [id number] Care Team Providers Care Bull Float Finisher Name Role Phone DIXON REYES Primary Care Provider REASON FOR VISIT Medicare Denial Lab Encounters Encounter Location Date Provider Diagnosis [address] [address] 04/24/2025 DIXON REYES PLAN OF TREATMENT Next Appt Details Provider Name:DIXON REYES , 06/03/2025 09:45:00 AM, [address] [place] [address], [phone], Provider Name:DIXON REYES , 08/21/2025 01:45:00 PM, [address] [place] [address], [phone],
--- NOTE | 2025-05-28 10:01 | HO.NEPHOV ---
Vital Signs 05/28/25 10:05 Height 5 ft 2 in Weight 191 lb 8 oz BMI 35.0 BP 124/64 Blood Pressure Location Lt brachial Position Sitting Pulse 58 Pulse Source Pulse Oximeter Pulse Oximetry (%) 97 Oxygen Delivery Method Room Air Intake Visit Reasons: 3 [facility] Missionary Coordinator Required: No Accompanied by: Self / Same As Patient Allergies atenolol Allergy (Verified 05/28/25 10:05) Unknown HPI Comments Details: Rita was seen in follow-up for her chronic kidney disease and hypertension on a background of right renal artery stenosis. She has hypertension for at least 30 years. She has history of atrial fibrillation but denies any PAD, CAD, CHF . She monitors her blood pressure at home closely & her blood pressures are still intermittently running quite low. She is on flecainide as well as Diltiazem. She does not have any chest pain, shortness of breath, headache, dizziness, edema or urinary symptoms. Her blood pressures have been running low even after D/Cing hydralazine. [facility] Medical History Hyperlipidemia Malaise and fatigue Impaired fasting glucose Essential hypertension Atrial fibrillation Acute kidney failure Family History Father Stroke Hypertension Diabetes Maternal Aunt Cancer Review of Systems Const All systems reviewed & are unremarkable except as noted in HPI and below Physical Exam Const General: comfortable and no acute distress Orientation/consciousness: patient oriented x3 HEENT Head: Yes normocephalic Mouth: Normal oral and palatal mucosa present Eyes EOM: EOMs intact bilaterally Neck Neck: Yes supple Resp Auscultation: clear to auscultation bilaterally Cardio Jugular venous distension: no JVD Rate: regular rate GI Palpation (GI): Soft to palpation Auscultation: normal bowel sounds General: Yes no CVA tenderness Back/Spine/Pelvis Back: no CVA tenderness Skin General skin exam: no rashes or lesions noted Neuro General: patient oriented x3 and moves all extremities Extrem General: Yes no pedal edema Results Reviewed Nephrology Results: Sodium, (135-145) 141 mmol/L 05/26/25 Potassium, (3.3-5.1) 4.1 mmol/L 05/26/25 Chloride, (96-108) 105 mmol/L 05/26/25 Carbon Dioxide, (22-29) 27 mmol/L 05/26/25 BUN, (9-16) 25 mg/dL H 05/26/25 Creatinine, (0.5-1.4) 1.27 mg/dL 05/26/25 Assessment & Plan Assessment & Plan (1) Hypertension: Code(s): I10 - Essential (primary) hypertension Category: Medical Qualifiers: Hypertension type: renovascular hypertension Qualified Code(s): I15.0 - Renovascular hypertension (2) Renal artery stenosis: Code(s): I70.1 - Atherosclerosis of renal artery Category: Medical (3) CKD (chronic kidney disease) stage 3, GFR 30-59 ml/min: Code(s): N18.30 - Chronic kidney disease, stage 3 unspecified Category: Medical Qualifiers: Chronic kidney disease stage 3 subtype: stage 3a (GFR 45-59) Qualified Code(s): N18.31 - Chronic kidney disease, stage 3a Plan Rita has hypertension from vascular disease. She has right renal artery stenosis. She is on Avapro 75 mg daily. I plan to do a serum cortisol if her BP still runs low. Also she may need an ECHO. I will order a follow up Doppler of her renal arteries with time. She does not need renal angiogram now. She should avoid nonsteroidal anti-inflammatory medications and remain well hydrated. All questions were answered and follow-up was given . She is already on Eliquis and simvastatin as well. Follow-up given Orders: Orders Creatinine 3 Months I15.0 - Renovascular hypertension, I70.1 - Atherosclerosis of renal artery, N18.31 - Chronic kidney disease, stage 3a Electrolytes 3 Months I15.0 - Renovascular hypertension, I70.1 - Atherosclerosis of renal artery, N18.31 - Chronic kidney disease, stage 3a Blood Urea Nitrogen 3 Months I15.0 - Renovascular hypertension, I70.1 - Atherosclerosis of renal artery, N18.31 - Chronic kidney disease, stage 3a Coding Level of Care Code Est Pt Level 4 (51131) Diagnoses Renovascular hypertension I15.0 Hypertension type: renovascular hypertension Renal artery stenosis I70.1 Stage 3a chronic kidney disease N18.31 Chronic kidney disease stage 3 subtype: stage 3a (GFR 45-59)
[2025-05-28 10:05] VITALS: BP 124/64; PULSE 58; O2SAT 97; BMI 35.0
--- OUTSIDE RECORDS SUMMARY | 2025-05-28 10:43 | XMS_ITS | Encounter Summary ---
Author Organization [facility] Address [address] [place] [address] Phone Care Team Providers Care Mechanical Drafter Name Role Phone Sourav Stock MD Primary Care Provider [phone] Encounter Details Date Type Department Care Team (Late st Contact Info) Description 03/15/2023 Telephone [facility] [address] [place] [address] Gabbi Lopez Social History Tobacco [...] on filedocumented in this encounter Care Teams Mechanical Drafter Relationship Specialty Start Date End Date Sourav Stock MD [address] [facility] [address] [place] [address] PCP - General Internal Medicine 04/13/22 documented as of this encounter
--- OUTSIDE RECORDS SUMMARY | 2025-05-28 10:43 | XMS_ITS | Clinical Summary ---
Author Organization [facility] Address [address] [address] Phone Care Team Providers Care System Operator Name Role Phone Sourav Stock MD Primary Care Provider [phone] Allergies Active Allergy Reactions Criticality Noted Date [...] Cancer Screening: Sigmoidoscopy 1998 Influenza Vaccine (#1) 2025 07/15/2021 Hepatitis B Vaccine Aged Out No longe r eligible based on patient's age to complete this topic Insurance Medicare [facility] Medicare [facility] Care Teams System Operator Relationship Specialty Start Date End Date Sourav Stock MD [address] [place] [id number] PCP - General Internal Medicine 04/13/22
--- OUTSIDE RECORDS SUMMARY | 2025-05-28 10:43 | XMS_ITS | Encounter Summary ---
Author Organization [facility] Address [address] [place] [address] Phone Care Team Providers Care Middle School Teacher Name Role Phone Sourav Stock MD Primary Care Provider [phone] Encounter Details Date Type Department Care Team (Late st Contact Info) Description 02/28/2023 Documentation Only [facility] [address] [place] [address] Gabbi James Social History Tobacco [...] on filedocumented in this encounter Care Teams Middle School Teacher Relationship Specialty Start Date End Date Sourav Stock MD [address] [facility] [address] [place] [address] PCP - General Internal Medicine 04/13/22 documented as of this encounter
--- OUTSIDE RECORDS SUMMARY | 2025-05-28 10:44 | XMS_ITS | Patient Health Record ---
Author Organization [facility] Address [address] [place] [address] Care Team Providers Care Recruiting Coordinator Name Role Phone Sourav Stock MD Primary Care Provider UnavailRomina Gordillo Unavailable [phone] Allergies No Known Allergies Reason For Referral No Information Medications Medication SIG (Take, Route, Frequency, Duration) Notes Start Date End Date Status Nightsplint . . . AFO - L1930; Duration: . Active Meloxicam 7.5 MG 1 tablet Orally Once a day Not-Taking Flecainide Acetate 50 MG as directed Orally Active Amlodipine & Diet Manage Prod Not-Taking potassium 1 tab Oral; Duration : 14 days Active Ativan Not-Taking amLODIPine Besylate Not-Taking Spironolactone 25 MG 1 tablet Orally; Duration: 30 day(s) Active Hyzaar 100-25 MG 1 tablet Orally Once a day Not-Taking Valsartan-hydroCHLOROthiaz juan 320-12.5 MG 1 tablet Orally Once a day; Duration: 30 day(s) Active Metoprolol & Diet Manage Prod 1oomg Active dilTIAZem HCl 120 MG as directed Orally Active Lipitor Not-Taking eliquis 5 mg Active Simvastatin 10 MG as directed Orally Active Immunizations Vaccine Route Administration Date Status Comme nts Influenza Unknown 07/15/2021 Administered COVID-19 Pfizer BioNTech Vaccine Unknown 08/25/2021 Administered 1st Dose: 11/24/2020 2nd dose: 12/16/20 Social History Tobacco Use: Social History Observation [...] W/U Status Risk Notes Problem Plantar wart (15269170) Plantar wart (B07.0) Active confirmed Problem Acquired hammer toe of right foot (8505647182867 105) Hammer toe of right foot (M20.41) Active confirmed Problem Acquired hammer toe of left foot (3843208190247 103) Hammer toe of left foot (M20.42) Active confirmed Plan Of Treatment Pending Test Test Name Order Date X ray : Foot, left 3V 01/10/2018 X ray : Foot, right 3V 06/17/2011 [id number] Destruction, 1-14 01/10/2018 Insurance Providers Payer Name Payer Address Payer Phone Subscriber Number Group Number Insured Name Patient Relationship to Insured Coverage Start Date Coverage End Date Medicare [employer] [address] [place] [address] [id number] Rita Courtney Self - patient is the insured [facility] [address] [place] [id number] Rita Courtney Self - patient is the insured Medical (General) History Medical History History ICD Code Cholesterol high blood pressure Anxiety disorder Sciatica Afib Surgical History Surgery Date(Month/Year)
--- OUTSIDE RECORDS SUMMARY | 2025-05-28 10:44 | XMS_ITS | Clinical Summary ---
Author Organization [address] [place] [address] [place] [phone] Phone Care Team Providers Care Ornament Stitcher Name Role Phone Dixon Stock MD Primary Care Provider [phone] Allergies Active Allergy Reactions Criticality Noted Date [...] remains in sinus rhythm on EKG. Her CT interval is slightly prolonged when compared to [...] Team Description 05/13/2025 11:10 AM EDT Consult [facility] Cardiology [facility] [address] [place] [address] Dixno Logan MD Paroxysmal atrial fibrillation (CMS/HCC V24, CMS/HCC V28) (Primary Dx) 03/28/2025 Telephone [facility] Cardiology [facility] [address] [place] [address] Dixon Logan MD 03/19/2025 Telephone [facility] Cardiology [facility] [address] [facility] [address] [place] [address] Dixon Stock MD from Last 3 Months Medical History Medical [...] GEMUSE QTc 423 ms GEMUSE P Wave [place] 91 degrees GEMUSE R [place] -40 degrees GEMUSE T [place] 78 degrees GEMUSE ECG Interpretation Sinus rhythm [...] Insurance MEDICARE [facility] Care Teams Ornament Stitcher Relationship Specialty Start Date End Date Dixon Stock MD [address] [place] [id number] PCP - General Internal Medicine 01/04/25
--- OUTSIDE RECORDS SUMMARY | 2025-05-28 10:44 | XMS_ITS | Encounter Summary ---
Author Organization [facility] Address [address] [place] [address] Phone Care Team Providers Care Institutional Commodity Analyst Name Role Phone Sourav Stock MD Primary Care Provider Encounter Details Date Type Department Care Team (Late st Contact Info) Description 02/16/2023 Telephone [facility] [address] [place] [address] Gabbi Lopez Social History Tobacco [...] on filedocumented in this encounter Care Teams Institutional Commodity Analyst Relationship Specialty Start Date End Date Sourav Stock MD [address] [place] [address] PCP - General Internal Medicine 04/13/22 documented as of this encounter
--- OUTSIDE RECORDS SUMMARY | 2025-05-28 10:44 | XMS_ITS | Patient Health Record ---
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 Car Driver Name Role Phone DIXON REYES Primary Care Provider [phone] ALLERGIES Allergen (clinical drug ingredient) Drug/Non Drug Allergy documented on EMR Reaction Allergy Type Onset Date Status atenolol Atenolol rash Drug Allergy 02/28/2009 Active REASON FOR REFERRAL Reason Appt Eval and treat Diagnosis 1 Unsteady gait (R26.8 1) Diagnosis 2 Primary osteoarthrit is of both knees (M17.0) Referral Organization [facility] soci[facility] Referring Provider First Name DIXON Referring Provider Last Name AMY Referring Provider Speciality Internal M edicine Referred Provider Specialty Physical The rapy Referral Priority Routine MEDICATIONS Medication SIG (Take, Route, Frequency, Duration) Notes Start Date End Date Status Eliquis 5 MG 1 Tablet Orally Twic e a day Active Hydrocortisone 2.5 % 1 application Exter nal Twice a day for 30 day(s) 06/13/2022 Active Nystatin 204020 UNIT/GM apply by topical route 2 times every day to the affected area(s) External Twice a day for 30 day(s) 09/30/2022 Active Spironolactone 25 MG TAKE 1/2 TABLET BRIAN LY BY MOUTH FOR 90 DAYS for 90 Active Mupirocin 2 % 1 application Cognos Report Developer ally Twice a day for 7 day(s) 09/26/2024 Active Irbesartan 75 MG 1 tablet Orally Once a day Active Metoprolol Succinate ER 100 MG 1 1/2 tablet Orally Once a day Active Simvastatin 10 MG 1 tablet in the even ing Orally Once a day for 90 days Active dilTIAZem HCl ER Coated Beads 120 MG 1 capsule Orally Once a day Active Fluticasone Propionate 50 MCG/ACT 2 sprays (1 spray in each nostril) Nasally Once a day for 30 days 10/04/2021 Active Flecainide Acetate 50 MG 1 tablet Orally every 12 hrs for 90 days Active IMMUNIZATIONS Vaccine Route Administration Date Status Comme nts Influenza, Fluarix Quad Unknown 07/09/2012 Administered Influenza, Fluarix Quad Unknown 07/12/2013 Administered Influenza, Fluarix Quad Unknown 07/02/2014 Administered Pfizer COVID-19,mRNA, LNP-S, PF, 30mcg/0.3mL dose Unknown 11/24/2020 Administered Pfizer COVID-19,mRNA, LNP-S, PF, 30mcg/0.3mL dose Unknown 12/16/2020 Administered Pneumococcal Prevnar 13 IM Intramuscular 09/03/2015 Admini stered Pneumococcal, PPV 23 IM Intramuscular 07/28/2016 Administe red SARSCOV2 VAC 3 MCG TRS-SUCR Pfizer Unknown 02/04/2022 Administered SARSCOV2 VAC BVL 3MCG/0.2ML Pfizer Unknown 08/02/2021 Administered Td (Tetanus Diphtheria) Unknown 07/21/2009 Administered SOCIAL HISTORY Tobacco Use: Social History Observation Description Date Details (start date - stop date) Never Smoker NA - NA Sex Assigned At : Social History Observation Description Sex Assigned At Unknown Smoking Question Answer Notes Are you a: never smoker Alcohol Screen Question Answer Notes Did you have a drink containing alcohol in the p ast year? No Points 0 Interpretation Negative PROBLEMS Problem Type ICD Code Onset Dates Problem Status W/U Status Risk SNOMED Code Notes Problem Paroxysmal atrial fibrillation (I48.0) Active confirmed 385621812 Problem Unsteady gait (R26.81) Active confirmed 93127007 Problem Morbid (severe) obesity due to excess calories (E66.01) Active confirmed 362809745 Problem Primary osteoarthritis of both knees (M17.0) Active confirmed 175672385 Problem Degenerative lumbar disc (M51.36) Active confirmed 36242987 Problem Prediabetes (R73.03) Active confirmed 716664611 Problem Non-seasonal allergic rhinitis, unspecified trigger (J30.89) Active confirmed 73207266 Problem Body mass index [BMI] 37.0-37.9, adult (Z68.37) Active confirmed 012713796 Problem Stage 3a chronic kidney disease (CKD) (N18.31) Active confirmed 310111340 Problem Obesity, class 2 (E66.812) Active confirmed 17284475671451 Problem Essential (primary) hypertension (I10) 10/17/19 10 Active confirmed Essential hypertension (59035794) Problem Pain in left knee (M25.562) 10/17/19 10 Active confirmed VITAL SIGNS Blood pressure diastolic 74 mm Hg 03/19/2025 Height 59.5 in 03/19/2025 Blood pressure systolic 124 mm Hg 03/19/2025 Weight 191.2 lbs 03/19/2025 BMI 37.97 kg/m2 03/19/2025 Encounters Encounter Location Date Provider Diagnosis [address] [address] 06/27/2024 [place] [phone] 06/27/2024 [facility] COVID 079.89 [place] [phone] 08/19/2024 [facility] Medicare annual well ness visit, subsequent Z00.[address] [address] 08/19/2024 [facility] Essential (primary) hypertension I10 ; Paroxysmal atrial fibrillation I48.0 ; Prediabetes R73.03 ; Encounter for general adult medical examination with abnormal findings Z00.01 ; Breast cancer screening by mammogram Z12.31 ; Tinea cruris B35.6 and Morbid (severe) obesity due to excess calories E66.[address] [address] 09/26/[address] [address] 11/04/[address] [address] 11/05/[address] [address] 11/05/2024 [facility] Acute cough R05.1 an d Essential (primary) hypertension I10 [address] [address] 11/06/2024 [facility] [address] [place] [address] 11/06/2024 [facility] [address] [place] [address] 11/14/2024 [facility] [address] [place] [address] 11/17/2024 [facility] [address] [place] [address] 11/19/2024 [facility] Gastroenteritis K52. 9 [facility] [address] [place] [address] 11/19/2024 [facility] [address] [place] [phone] 11/21/2024 [facility] [address] [place] [phone] 11/27/2024 DIXON ADRIAN Paroxysmal atrial fibrillation I48.0 and Essential (primary) hypertension I10 [facility] [address] [place] [phone] 11/29/2024 [facility] Essential (primary) hypertension I10 [facility] [address] [place] [phone] 12/06/2024 [facility] [address] [place] [address] 12/19/2024 [facility] [address] [place] [phone] 12/30/2024 [facility] [address] [place] [address] 01/21/2025 [facility] [address] [place] [phone] 01/22/2025 DIXON ADRIAN Essential (primary) hypertension I10 ; Primary osteoarthritis of both knees M17.0 and Unsteady gait R26.81 [facility] [address] [place] [phone] 01/22/2025 DIXON ADRIAN Essential (primary) hypertension I10 [facility] [address] [place] [address] 01/22/2025 [facility] [address] [place] [address] [place] [address] 01/23/2025 [facility] [address] [place] [address], [place] [address] 03/06/2025 [facility] [address] [place] [address], [place] [address] 03/06/2025 [facility] [address] [place] [address], [place] [address] 03/19/2025 DIXON ADRIAN Essential (primary) hypertension I10 ; Prediabetes R73.03 ; Paroxysmal atrial fibrillation I48.0 and Stage 3a chronic kidney disease (CKD) N18.[address] [place] [address] 03/19/[address] [place] [address] 04/22/[address] [place] [address] 04/24/2025 DIXON ADRIAN ASSESSMENTS Encounter Date Diagnosis Assessment Notes Treatment Notes Treatment Clinical Notes Section Notes 01/22/2025 Essential (primary) hypertension (ICD-10 - I10) 03/19/2025 Prediabetes (ICD-10 - R73.03) 1. Hypertension: Stable on present regimen. No changes made today 2. Prediabetes: Stable with nutrition efforts. Will follow-up 3. Paroxysmal atrial fibrillation: No obvious recurrence on current therapy through cardiology. She has an appointment with Dr. Logan in May 05. Stage IIIa chronic kidney disease: Stable labs on present medical therapy. Knows to avoid anti-inflammator ies. Will follow 03/19/2025 Essential (primary) hypertension (ICD-10 - I10) 1. Hypertension: Stable on present regimen. No changes made today 2. Prediabetes: Stable with nutrition efforts. Will follow-up 3. Paroxysmal atrial fibrillation: No obvious recurrence on current therapy through cardiology. She has an appointment with Dr. Logan in May 05. Stage IIIa chronic kidney disease: Stable labs on present medical therapy. Knows to avoid anti-inflammator ies. Will follow 01/22/2025 Primary osteoarthritis of both knees (ICD-10 - M17.0) 1. Hypertension: Trending lower. Frequent 90s at home. Will drop hydralazine to 10 mg twice a day and follow. She may benefit from a repeat 24-hour blood pressure monitor. She sees renal in January I will see her back in March 03. Osteoarthritis of the knees and unsteady gait: Will refer for physical therapy. She has follow-up with Dr. Canales regarding her arthritis as well 01/22/2025 Essential (primary) hypertension (ICD-10 - I10) CancelRx Response got Denied on 2025-01-22 17:26:17 for 'hydrALAZINE HCl 10 MG Tablet'Pharmacy Notes: Unable to cancel prescription; prescription was transferred to another pharmacy. 1. Hypertension: Trending lower. Frequent 90s at home. Will drop hydralazine to 10 mg twice a day and follow. She may benefit from a repeat 24-hour blood pressure monitor. She sees renal in January I will see her back in March 03. Osteoarthritis of the knees and unsteady gait: Will refer for physical therapy. She has follow-up with Dr. Canales regarding her arthritis as well 11/29/2024 Essential (primary) hypertension (ICD-10 - I10) 1. Hypertension: Will monitor reads 25 points lower than we are getting in the office today calling this data into question. I gave her prescription for a new monitor and she will call me with readings on this new machine next week. Will plan to get together in the office again in 3 to 4 weeks but will determine the immediate term whether we need to go back up on her hydralazine. 11/27/2024 Paroxysmal atrial fibrillation (ICD-10 - I48.0) 1. Hypertension: Markedly different readings here from home. She has pictures of her machine reports giving systolic readings in the 90s. She will return on Monday with her machine we will check back to back to make a decision on what date as accurate 2. Paroxysmal atrial fibrillation: Stable on current Eliquis. No abnormal bleeding. Continue same 11/27/2024 Essential (primary) hypertension (ICD-10 - I10) 1. Hypertension: Markedly different readings here from home. She has pictures of her machine reports giving systolic readings in the 90s. She will return on Monday with her machine we will check back to back to make a decision on what date as accurate 2. Paroxysmal atrial fibrillation: Stable on current Eliquis. No abnormal bleeding. Continue same 11/19/2024 Gastroenteritis (ICD-10 - K52.9) 1. Gastroenteritis: Appears to have been viral - rather than med related. Recheck if not seeing continued improvement declines anti- nausea medication today 11/05/2024 Acute cough (ICD-10 - R05.1) 1. Asthmatic Bronchitis: Rx zithromax and medrol Encourage fluids and reassess if not better. 2. Hypertension: Stable on present regimen. No changes made today. 11/05/2024 Essential (primary) hypertension (ICD-10 - I10) 1. Asthmatic Bronchitis: Rx zithromax and medrol Encourage fluids and reassess if not better. 2. Hypertension: Stable on present regimen. No changes made today. 06/27/2024 COVID (ICD9-CM - 079.89) 1. COVID: We cannot treat with Paxlovid due to drug interactions. We will trial treating her cough with Tessalon Perles. Patient will isolate at home until afebrile for 24 hours and clearly feeling improved - and then if feeling improved may leave the home wearing a mask for 5 days thereafter. Patient will call in the interim if any concerns arise 08/19/2024 Paroxysmal atrial fibrillation (ICD-10 - I48.0) 1. hypertension: Stable on present regimen. No changes made today 2. Paroxysmal atrial fibrillation: Infrequent episodes of palpitations. Continue present therapy including Eliquis 3. Prediabetes: Last A1c was 6.3. Will recheck with current labs 4. Routine healthcare maintenance: She is overdue for colonoscopy. I have given the number to call [facility]. She will update fasting blood work. She will update her mammogram 5. Tinea cruris: Renewed nystatin powder today 6. Obesity: Urged efforts at diet and walking 08/19/2024 Essential (primary) hypertension (ICD-10 - I10) 1. hypertension: Stable on present regimen. No changes made today 2. Paroxysmal atrial fibrillation: Infrequent episodes of palpitations. Continue present therapy including Eliquis 3. Prediabetes: Last A1c was 6.3. Will recheck with current labs 4. Routine healthcare maintenance: She is overdue for colonoscopy. I have given the number to call [facility]. She will update fasting blood work. She will update her mammogram 5. Tinea cruris: Renewed nystatin powder today 6. Obesity: Urged efforts at diet and walking 08/19/2024 Medicare annual wellness visit, subsequent (ICD-10 - Z00.00) AWV reviewed with pt 08/19/2024 Prediabetes (ICD-10 - R73.03) 1. hypertension: Stable on present regimen. No changes made today 2. Paroxysmal atrial fibrillation: Infrequent episodes of palpitations. Continue present therapy including Eliquis 3. Prediabetes: Last A1c was 6.3. Will recheck with current labs 4. Routine healthcare maintenance: She is overdue for colonoscopy. I have given the number to call [facility]. She will update fasting blood work. She will update her mammogram 5. Tinea cruris: Renewed nystatin powder today 6. Obesity: Urged efforts at diet and walking 01/22/2025 Unsteady gait (ICD-10 - R26.81) 1. Hypertension: Trending lower. Frequent 90s at home. Will drop hydralazine to 10 mg twice a day and follow. She may benefit from a repeat 24-hour blood pressure monitor. She sees renal in January I will see her back in March 2. Osteoarthritis of the knees and unsteady gait: Will refer for physical therapy. She has follow-up with Dr. Canales regarding her arthritis as well 03/19/2025 Paroxysmal atrial fibrillation (ICD-10 - I48.0) 1. Hypertension: Stable on present regimen. No changes made today 2. Prediabetes: Stable with nutrition efforts. Will follow-up 3. Paroxysmal atrial fibrillation: No obvious recurrence on current therapy through cardiology. She has an appointment with Dr. Logan in May 05. Stage IIIa chronic kidney disease: Stable labs on present medical therapy. Knows to avoid anti-inflammator ies. Will follow 08/19/2024 Encounter for general adult medical examination with abnormal findings (ICD-10 - Z00.01) 1. hypertension: Stable on present regimen. No changes made today 2. Paroxysmal atrial fibrillation: Infrequent episodes of palpitations. Continue present therapy including Eliquis 3. Prediabetes: Last A1c was 6.3. Will recheck with current labs 4. Routine healthcare maintenance: She is overdue for colonoscopy. I have given the number to call [facility]. She will update fasting blood work. She will update her mammogram 5. Tinea cruris: Renewed nystatin powder today 6. Obesity: Urged efforts at diet and walking 03/19/2025 Stage 3a chronic kidney disease (CKD) (ICD-10 - N18.31) 1. Hypertension: Stable on present regimen. No changes made today 2. Prediabetes: Stable with nutrition efforts. Will follow-up 3. Paroxysmal atrial fibrillation: No obvious recurrence on current therapy through cardiology. She has an appointment with Dr. Logan in May 05. Stage IIIa chronic kidney disease: Stable labs on present medical therapy. Knows to avoid anti-inflammator ies. Will follow 08/19/2024 Breast cancer screening by mammogram (ICD-10 - Z12.31) 1. hypertension: Stable on present regimen. No changes made today 2. Paroxysmal atrial fibrillation: Infrequent episodes of palpitations. Continue present therapy including Eliquis 3. Prediabetes: Last A1c was 6.3. Will recheck with current labs 4. Routine healthcare maintenance: She is overdue for colonoscopy. I have given the number to call [facility]. She will update fasting blood work. She will update her mammogram 5. Tinea cruris: Renewed nystatin powder today 6. Obesity: Urged efforts at diet and walking 08/19/2024 Tinea cruris (ICD-10 - B35.6) 1. hypertension: Stable on present regimen. No changes made today 2. Paroxysmal atrial fibrillation: Infrequent episodes of palpitations. Continue present therapy including Eliquis 3. Prediabetes: Last A1c was 6.3. Will recheck with current labs 4. Routine healthcare maintenance: She is overdue for colonoscopy. I have given the number to call [facility]. She will update fasting blood work. She will update her mammogram 5. Tinea cruris: Renewed nystatin powder today 6. Obesity: Urged efforts at diet and walking 08/19/2024 Morbid (severe) obesity due to excess calories (ICD-10 - E66.01) 1. hypertension: Stable on present regimen. No changes made today 2. Paroxysmal atrial fibrillation: Infrequent episodes of palpitations. Continue present therapy including Eliquis 3. Prediabetes: Last A1c was 6.3. Will recheck with current labs 4. Routine healthcare maintenance: She is overdue for colonoscopy. I have given the number to call [facility]. She will update fasting blood work. She will update her mammogram 5. Tinea cruris: Renewed nystatin powder today 6. Obesity: Urged efforts at diet and walking PLAN OF TREATMENT Next Appt Details Provider Name:DIXON REYES , 06/03/2025 09:45:00 AM, [address] [place] [address], [phone], Provider Name:DIXON REYES , 08/21/2025 01:45:00 PM, [address] [place] [address], [phone], Insurance Providers Payer Name Payer Address Payer Phone Subscriber Number Group Number Insured Name Patient Relationship to Insured Coverage Start Date Coverage End Date [employer]IC[employer] [address] [place] [address] [id number] JENNIFER LUKAS Self - patient is the insured 3 [facility] [address] [place] [address] [phone] [id number] LUKAS RODRIGUEZ Self - patient is the insured 3 MEDICAL (GENERAL) HISTORY Medical History History ICD Code Disease : Impaired fasting glucose, Disease : Osteoarthritis, Atrial fibrillation, Elevated lipids, Hypertension, Problems: Degenerative joint disease involving multiple joints, Added Date: 06/21/2015, Onset Date: 10/17/2009:Active Problems: Malaise and fatigu e, Added Date: 06/21/2015, Onset Date: 10/17/2009:Active Problems: Mixed hyperlipidem ia, Added Date: 06/21/2015, Onset Date: 10/17/2009:Active Emergency Contact- Merna Osorio ([facility]) Surgical History Surgery Date(Month/Year)
== END 2025-05-28 10:22 | disposition home or self-care (01) ==
LOC: HO.HKA 09:58
PROVIDERS: PCP Internal Medicine; Visit Provider Internal Medicine Nephrology
DX: I15.0 Renovascular hypertension (principal); I70.1 Atherosclerosis of renal artery; N18.31 Chronic kidney disease, stage 3a
CPT/HCPCS: 99214

== ENCOUNTER → 2025-05-28 09:58 | Outpatient (BNVA) | payer MEDICARE, BC, OTHER, SELFPAY | PROVIDERS: PCP Internal Medicine; Visit Provider Internal Medicine Nephrology | DX: I15.0 Renovascular hypertension (principal); N18.31 Chronic kidney disease, stage 3a; I70.1 Atherosclerosis of renal artery | CPT/HCPCS: 99212 ==

== ENCOUNTER 2025-09-17 11:22 | Outpatient (AMB) | payer MEDICARE, BC, OTHER, SELFPAY ==
--- OUTSIDE RECORDS SUMMARY | 2024-05-09 10:00 | XMS_ITS ---
Author Organization [facility] Address [address] [place] [address] Care Team Providers Care Band Nailer Name Role Phone Sourav Stock MD Primary Care Provider Unavailab Romina Cam Unavailable [phone] Encounters Encounter Location Date Provider Diagnosis [address] [address] 05/09/2024 Romina Gaytan Plan Of Treatment No Information Progress Notes * Rita RODRIGUEZ ADOB:1950 (74 yo F)Acc No.[id number]:05/09/2024 Progress Note Patient: Rita BAÑUELOS Provider: David Gaytan DPM :1950 A ge:73 Y S ex:Female Date:05/09/2024 Address:[address] [place] [address] Tyrone Chávezmatthew [id number] Pcp:Sourav Stock MD Subjective: * Chief Complaints: * * Medical History: Objective: * Vitals: Assessment: Plan: * Treatment: * Images: * The named appointment provid er may or may not be the originator of this progress note, and it is not deemed complete until electronically signed by the appointment provider. Sign off status: Pending * Provider: David Gaytan DPM Date: 0 05/09/2024 Generated for Printi ng/Faxing/eTransmitting on: 1 11/18/2024 03:05 PM EST
--- OUTSIDE RECORDS SUMMARY | 2024-12-30 04:30 | XMS_ITS ---
Author Organization [facility] Address [address] [place] [address] Care Team Providers Care Coal Hauler Name Role Phone DIXON REYES Primary Care Provider REASON FOR VISIT 41/ 4w f/u Encounters Encounter Location Date Provider Diagnosis [facility] [address] [place] [address] 12/30/2024 DIXON REYES Plan Of Treatment Next Appt Details Provider Name:DIXON REYES , 12/17/2025 11:30:00 AM, [address] [place], [address], Progress Notes * LUKAS RODRIGUEZ ADOB:1950 (74 yo F)Acc No.[id number]:12/30/2024 Progress Notes Patient: LUKAS BAÑUELOS Provider: Shaylee REYES M.D. :1950 A ge:74 Y S ex:Female Date:12/30/2024 Address:[address] [place] [address] [id number] Subjective: * Chief Complaints: * 4 1/ 4w f/u * Electronic signature of DIXON REYES MD on 09/17/2025 at 03:05 PM EST Sign off status: Pending * Provider: Shaylee REYES M.D. Date: 0 12/30/2024 Generated for Printi ng/Faxing/eTransmitting on: 1 11/18/2024 03:05 PM EST
--- OUTSIDE RECORDS SUMMARY | 2025-08-01 10:00 | XMS_ITS ---
Author Organization [facility] Address [address] [place] [address] Care Team Providers Care Billing Coordinator Name Role Phone DIXON REYES Primary Care Provider REASON FOR VISIT 40/ red spot on leg since summer Encounters Encounter Location Date Provider Diagnosis [facility] [address] [place] [phone] 08/01/2025 DIXON REYES Plan Of Treatment Next Appt Details Provider Name:DIXON REYES , 12/17/2025 11:30:00 AM, [address] [place], [address], Progress Notes * RODRIGUEZLUKAS JOE ADOB:1950 (74 yo F)Acc No.[id number]:08/01/2025 Patient: LUKAS BAÑUELOS Provider: Shaylee REYES M.D. :1950 A ge:74 Y S ex:Female Date:08/01/2025 Address:[address] [place] [address] [id number] Subjective: * Chief Complaints: * 4 1/ red spot on leg since summer * Electronic signature of DIXON REYES MD on 09/17/2025 at 03:04 PM EST Sign off status: Pending * Provider: Shaylee REYES M.D. Date: Generated for Printi ng/Fawaldog/eTransmitting on: 11/18/2024 03:04 PM EST
--- OUTSIDE RECORDS SUMMARY | 2025-08-21 08:45 | XMS_ITS ---
Author Organization [facility] Address [address] [place] [address] Care Team Providers Care Referral Coordinator Name Role Phone DIXON REYES Primary Care Provider Encounters Encounter Location Date Provider Diagnosis [address] [address] 08/21/2025 DIXON REYES Plan Of Treatment Next Appt Details Provider Name:DXION REYES , 12/17/2025 11:30:00 AM, [address] [place], [address], Progress Notes * LUKAS RODRIGUEZ ADOB:1950 (74 yo F)Acc No.[id number]:08/21/2025 Progress Note Patient: LUKAS BAÑUELOS Provider: Shaylee REYES M.D. :1950 A ge:74 Y S ex:Female Date:08/21/2025 Address:[address] [place] [address] [id number] * Electronic signature of DIXON REYES MD on 09/17/2025 at 03:05 PM EST Sign off status: Pending * Provider: Shaylee REYES M.D. Date: 10/21/2024 Generated for Printi ng/Faxing/eTransmitting on: 11/18/2024 03:05 PM EST
--- NOTE | 2025-09-17 11:30 | HO.NEPHOV_ITS ---
Vital Signs 09/17/25 11:32 Height 5 ft 2 in Weight 191 lb 2 oz BMI 35.0 BP 130/60 Blood Pressure Location Lt brachial Position Sitting Pulse 56 Pulse Source Pulse Oximeter Pulse Oximetry (%) 97 Oxygen Delivery Method Room Air Intake Visit Reasons: 3mon f/u w/labs-Conf Pig Sticker Required: No Accompanied by: Self / Same As Patient Allergies atenolol Allergy (Verified 09/17/25 11:32) Unknown HPI Comments Details: Rita was seen in follow-up for her chronic kidney disease and hypertension on a background of right renal artery stenosis. She has hypertension for at least 30 years. She has history of atrial fibrillation but denies any PAD, CAD, CHF . She monitors her blood pressure at home closely & her blood pressures are still intermittently running quite low. She is on flecainide as well as Diltiazem. She does not have any chest pain, shortness of breath, headache, dizziness, edema or urinary symptoms. [facility]LY [facility] Medical History Hyperlipidemia Malaise and fatigue Impaired fasting glucose Essential hypertension Atrial fibrillation Acute kidney failure Family History Father Stroke Hypertension Diabetes Maternal Aunt Cancer Review of Systems Const All systems reviewed & are unremarkable except as noted in HPI and below Physical Exam Vital Signs: Last Vital Signs Pulse 56 09/17/25 11:32 BP 130/60 09/17/25 11:32 Pulse Ox 97 09/17/25 11:32 Oxygen Delivery Method Room Air 09/17/25 11:32 BMI result Body Mass Index 35.0 Const General: comfortable and no acute distress Orientation/consciousness: patient oriented x3 HEENT Head: Yes normocephalic Mouth: Normal oral and palatal mucosa present Eyes EOM: EOMs intact bilaterally Neck Neck: Yes supple Resp Auscultation: clear to auscultation bilaterally Cardio Jugular venous distension: no JVD Rate: regular rate GI Palpation (GI): Soft to palpation Auscultation: normal bowel sounds General: Yes no CVA tenderness Back/Spine/Pelvis Back: no CVA tenderness Skin General skin exam: no rashes or lesions noted Neuro General: patient oriented x3 and moves all extremities Extrem General: Yes no pedal edema Results Reviewed Nephrology Results: Sodium, (135-145) 141 mmol/L 05/26/25 Potassium, (3.3-5.1) 4.1 mmol/L 05/26/25 Chloride, (96-108) 105 mmol/L 05/26/25 Carbon Dioxide, (22-29) 27 mmol/L 05/26/25 BUN, (9-16) 25 mg/dL H 05/26/25 Creatinine, (0.5-1.4) 1.27 mg/dL 05/26/25 Assessment & Plan Assessment & Plan (1) Hypertension: Code(s): I10 - Essential (primary) hypertension Category: Medical Qualifiers: Hypertension type: renovascular hypertension Qualified Code(s): I15.0 - Renovascular hypertension (2) Renal artery stenosis: Code(s): I70.1 - Atherosclerosis of renal artery Category: Medical (3) CKD (chronic kidney disease) stage 3, GFR 30-59 ml/min: Code(s): N18.30 - Chronic kidney disease, stage 3 unspecified Category: Medical Qualifiers: Chronic kidney disease stage 3 subtype: stage 3a (GFR 45-59) Qualified Code(s): N18.31 - Chronic kidney disease, stage 3a Plan Rita has hypertension from vascular disease. She has right renal artery stenosis. She is on Avapro 75 mg daily. I will order a follow up Doppler of her renal arteries with time. She does not need renal angiogram now. She should avoid nonsteroidal anti-inflammatory medications and remain well hydrated. All questions were answered and follow-up was given . She is already on Eliquis and simvastatin as well. Follow-up given Orders: Orders Blood Urea Nitrogen 4 Months I15.0 - Renovascular hypertension, I70.1 - Atherosclerosis of renal artery, N18.31 - Chronic kidney disease, stage 3a Creatinine 4 Months I15.0 - Renovascular hypertension, I70.1 - Atherosclerosis of renal artery, N18.31 - Chronic kidney disease, stage 3a Electrolytes 4 Months I15.0 - Renovascular hypertension, I70.1 - Atherosclerosis of renal artery, N18.31 - Chronic kidney disease, stage 3a Coding Level of Care Code Est Pt Level 4 (54672) Diagnoses Renovascular hypertension I15.0 Hypertension type: renovascular hypertension Renal artery stenosis I70.1 Stage 3a chronic kidney disease N18.31 Chronic kidney disease stage 3 subtype: stage 3a (GFR 45-59)
[2025-09-17 11:32] VITALS: BP 130/60; PULSE 56; O2SAT 97; BMI 35.0
--- OUTSIDE RECORDS SUMMARY | 2025-09-17 15:06 | XMS_ITS | Clinical Summary ---
Author Organization [address] [place] [address] [place] [id number] Phone Care Team Providers Care Panama Hat Blocker Name Role Phone Sourav Stock MD Primary Care Provider [phone] Allergies Active Allergy Reactions Criticality Noted Date [...] electrocardiogram 12/18/2023 Stage 3b chronic kidney disease 12/18/2023 Paroxysmal atrial fibrillation 06/01/2021 Overview (01/28/2025): - chronically anticoagulated with apixaban -Rhythm control strategy with flecainide and diltiazem -Normal pharmacologic nuclear stress test in 07/2021 -Most recent echocardiogram 01/2024 showed normal LVEF 60-65%, normal LV size and thickness, no wall motion abnormalities without hemodynamically significant valve disease Assessment & Plan (01/28/2025 12:08 PM EDT): The patient remains in sinus rhythm on EKG. Her IN interval is slightly prolonged when compared to [...] Lumbar radicular pain 06/25/2014 Trochanteric bursitis 06/25/2014 Medical History Medical History Date Comments Essential [...] Health Maintenance Due Date Last Done Comments Colorectal Cancer Screening: Colonoscopy 1949 DTaP,Tdap,and Td Vaccines (1 - Tdap) 1968 Zoster Vaccines (1 of 2) 1968 Pneumococcal Vaccine: 50+ Years (1 of 1 - PCV) 1999 Cholesterol Screening (Lipid Panel) 09/04/2022 Falls Risk Assessment 09/04/2022 Hepatitis C Screening 09/04/2022 Medicare Annual Wellness Visit 09/04/2022 Osteoporosis Screening (Bone Density Screening) 09/04/2022 Social Influencers of Health Screening 09/04/2022 Hypertension/CHF/CAD Annual BMP Blood Test 09/14/2022 Depression Screening 10/02/2024 RSV Immunization Adult Patients (1 - 1-dose 75+ series) 2024 COVID-19 Vaccine ( season) 2025 10/10/2022, 02/04/2022, 08/25/2021, Additional history exists Influenza Vaccine Completed 07/28/2025, , 08/08/2023, Additional history exists HIB Vaccines Aged Out [...] age to complete this topic Insurance MEDICARE [employer] [facility] Care Teams Panama Hat Blocker Relationship Specialty Start Date End Date Sourav Stock MD [address] [place] [id number] PCP - General Internal Medicine 01/04/25
--- OUTSIDE RECORDS SUMMARY | 2025-09-17 15:06 | XMS_ITS | Patient Health Record ---
Author Organization [facility] Address [address] [place] [address] Care Team Providers Care Dross Skimmer Name Role Phone Sourav Stock MD Primary Care Provider UnavailRomina Gordillo Unavailable [phone] Allergies No Known Allergies Reason For Referral [...] W/U Status Risk Notes Problem Plantar wart (15911688) Plantar wart (B07.0) Active confirmed Problem Acquired hammer toe of right foot ([id number] 105) Hammer toe of right foot (M20.41) Active confirmed Problem Acquired hammer toe of left foot ([id number] 103) Hammer toe of left foot (M20.42) Active confirmed Plan Of Treatment Pending Test Test Name Order Date X ray : Foot, left 3V 01/10/2018 X ray : Foot, right 3V 06/17/2011 [id number] Destruction, 1-14 01/10/2018 Insurance Providers Payer Name Payer Address Payer Phone Subscriber Number Group Number Insured Name Patient Relationship to Insured Coverage Start Date Coverage End Date Medicare [employer] [address] [place] [address] [id number] Rita Courtney Self - patient is the insured [facility] [address] [place] [address] [phone] [id number] Rita Courtney Self - patient is the insured Medical (General) History Medical History History ICD Code Cholesterol high blood pressure Anxiety disorder Sciatica Afib Surgical History Surgery Date(Month/Year)
--- OUTSIDE RECORDS SUMMARY | 2025-09-17 15:06 | XMS_ITS | Patient Health Record ---
Author Organization [facility] Address [address] [place] [address] Care Team Providers Care Retail Route Supervisor Name Role Phone DIXON REYES Primary Care Provider Allergies Allergen (clinical drug ingredient) Drug/Non Drug Allergy documented on EMR Reaction Allergy Type Onset Date Status atenolol Atenolol rash Drug Allergy 02/28/2009 Active Reason For Referral Reason Appt Eval and treat Diagnosis 1 Unsteady gait (R26.8 1) Diagnosis 2 Primary osteoarthrit is of both knees (M17.0) Referral Organization [facility] Referring Provider First Name DIXON Referring Provider Last Name MEXICO Referring Provider Speciality [facility] Referred Provider Specialty Physical [facility] Referral Priority Routine Reason Appt PT Eval and [place] at Diagnosis 1 Right leg pain (M79. 604) Referral Organization [facility] Referring Provider First Name DIXON Referring Provider Last Name MEXICO [facility] Referral Priority Routine Medications Medication SIG (Take, Route, Frequency, Duration) Notes Start Date End Date Status Eliquis 5 MG Tablet 1 Tablet Orally Twic e a day Active Spironolactone 25 MG Tablet 1/2 tablet O rally Once a day Active Simvastatin 10 MG Tablet 1 tablet in the evening Orally Once a day Active Nystatin 988601 UNIT/GM Powder apply by topical route 2 times every day to the affected area(s) External Twice a day; Duration: 30 day(s) 09/30/2022 Active Hydrocortisone 2.5 % Cream 1 application External Twice a day; Duration: 30 day(s) 06/13/2022 Active Fluticasone Propionate 50 MCG/ACT Suspension 2 sprays (1 spray in each nostril) Nasally Once a day; Duration: 30 days 10/04/2021 Active dilTIAZem HCl ER Coated Beads 120 MG Capsule Extended Release 24 Hour 1 capsule Orally Once a day Active Flecainide Acetate 50 MG Tablet 1 tablet Orally every 12 hrs Active Metoprolol Succinate ER 100 MG Tablet Extended Release 24 Hour 1 1/2 tablet Orally Once a day Active Irbesartan 75 MG Tablet 1 tablet Orally Once a day Active Mupirocin 2 % Ointment 1 application Ext ernally Twice a day; Duration: 7 day(s) 09/26/2024 Active Immunizations Vaccine Route Administration Date Status [...] Administered Td (Tetanus Diphtheria) Unknown 07/21/2009 Administered Social History Tobacco Use: Social History Observation Description Date Details (start date - stop date) Never Smoker NA - NA Social History Drug/Alcohol: Social Info Question Answer Notes Alcohol Screen Did you have a drink containing alcohol in the past year? No Points 0 Interpretation Negative Tobacco Use: Social Info Question Answer Notes Smoking Are you a: never smoker Additional Details Category Social Info Options Details General asbestos exposure: no alcohol use: no drug use: no Hobbies/Exercise habits: none Coffee/Tea/Soda: yes Marital Status experience no Pets none smokers in household no Problems Problem Type SNOMED Code ICD Code Onset Dates Problem Status W/U Status Risk Notes Problem Paroxysmal atrial fibrillation (329416935) Paroxysmal atrial fibrillation (I48.0) Active confirmed Problem Unsteady gait (97864480) Unsteady gait (R26.81) Active confirmed Problem Morbid obesity (disorder) (366173102) Morbid (severe) obesity due to excess calories (E66.01) Active confirmed Problem Mixed hyperlipidemia (941213633) Mixed hyperlipidemia (E78.2) Active confirmed Problem Osteoarthritis of knee (247674910) Primary osteoarthritis of both knees (M17.0) Active confirmed Problem Degeneration of lumbar intervertebral disc (07238450) Degenerative lumbar disc (M51.36) Active confirmed Problem Prediabetes (594129051) Prediabetes (R73.03) Active confirmed Problem Allergic rhinitis (24479377) Non-seasonal allergic rhinitis, unspecified trigger (J30.89) Active confirmed Problem Body mass index 35.00 to 39.99 (643151422666295) Body mass index [BMI] 37.0-37.9, adult (Z68.37) Active confirmed Problem Chronic kidney disease stage 3A (disorder) (546158157) Stage 3a chronic kidney disease (CKD) (N18.31) Active confirmed Problem Obese class II (finding) (287487547487553) Obesity, class 2 (E66.812) Active confirmed Problem Essential hypertension (36955096) Essential (primary) hypertension (I10) 10/17/19 10 Active confirmed Problem Pain of left knee joint (finding) (187862936235531) Pain in left knee (M25.562) 10/17/19 10 Active confirmed Vital Signs Blood pressure diastolic 72 mm Hg 08/20/2025 Height 59.5 in 08/20/2025 Blood pressure systolic 116 mm Hg 08/20/2025 Weight 189.8 lbs 08/20/2025 BMI 37.69 kg/m2 08/20/2025 Encounters Encounter Location Date Provider Diagnosis [facility] [address] [place] [address] 11/05/2024 DIXON REYES Acute cough R05.1 an d Essential (primary) hypertension I10 [facility] [address] [place] [address] 11/19/2024 DIXON REYES Gastroenteritis K52. 9 [facility] [address] [place] [address] 11/27/2024 DIXON REYES Paroxysmal atrial fibrillation I48.0 and Essential (primary) hypertension I10 [address] [address] 11/29/2024 [facility] Essential (primary) hypertension I10 [place] [id number]/22/2025 [facility] Essential (primary) hypertension I10 ; Primary osteoarthritis of both knees M17.0 and Unsteady gait R26.81 [place] [id number]/19/2025 [facility] Essential (primary) hypertension I10 ; Prediabetes R73.03 ; Paroxysmal atrial fibrillation I48.0 and Stage 3a chronic kidney disease (CKD) N18.31 [place] [id number] 06/03/2025 [facility] Essential (primary) hypertension I10 ; Paroxysmal atrial fibrillation I48.0 ; Right leg pain M79.604 and Stage 3a chronic kidney disease (CKD) N18.31 [place] [id number]/01/2025 [facility] Essential (primary) hypertension I10 ; Skin lesion of face L98.9 and Skin lesion L98.9 [place] [id number] 08/20/2025 [facility] Essential (primary) hypertension I10 ; Paroxysmal atrial fibrillation I48.0 ; Prediabetes R73.03 ; Stage 3a chronic kidney disease (CKD) N18.31 ; Right foot pain M79.671 ; Mixed hyperlipidemia E78.2 and Encounter for general adult medical examination with abnormal findings Z00.[address] [address] 08/20/2025 [facility] Annual wellness visi t Z00.[address] [address] 01/22/2025 [facility] Essential (primary) hypertension I10 [address] [address] 01/23/[address] [address] 03/19/[address] [place] [address] 08/21/2025 [facility] [address] [place] [address] 09/15/2025 [facility] [address] [place] [address] 04/22/2025 [facility] [address] [place] [address] 09/26/2024 [facility] [address] [place] [address] 11/04/2024 [facility] [address] [place] [address] 11/05/2024 [facility] [address] [place] [address] 11/06/2024 [facility] [address] [place] [address] 11/06/2024 [facility] [address] [place] [address] 11/14/2024 [facility] [address] [place] [address] 11/17/2024 [facility] [address] [place] [address] 11/19/2024 [facility] [address] [place] [address] 12/06/2024 [facility] [address] [place] [address] 12/19/2024 [facility] [address] [place] [address] 01/21/2025 [facility] [address] [place] [address] 01/22/2025 [facility] [address] [place] [address] 03/06/2025 [facility] [address] [place] [address] 03/06/2025 [facility] [address] [place] [address] 04/24/2025 [facility] [address] [place] [address] 07/29/2025 [facility] [address] [place] [address] 08/01/2025 [facility] [address] [place] [address] 09/11/2025 DIXON HANSONFORD Acute UTI N39.0 Assessments Encounter Date Diagnosis (ICD Code) Assessment Notes Treatment Notes Treatment Clinical Notes Section Notes 08/01/2025 Skin lesion of face (ICD-10 - L98.9) 1. Hypertension: Stable on present irbesartan, metoprolol, diltiazem and spironolactone. Will follow with renal 2. Skin lesion of the face: Suspect seborrheic keratosis. Will refer to [facility] 3. Skin lesion on left pretibial region: Question BCC will refer to [facility] 09/11/2025 Acute UTI (ICD-10 - N39.0) 08/20/2025 Annual wellness visit (ICD-10 - Z00.00) 08/20/2025 Essential (primary) hypertension (ICD-10 - I10) 1. Hypertension: Well-controlled on current irbesartan, metoprolol, diltiazem and spironolactone. No changes made today 2. Paroxysmal atrial fibrillation: No obvious recurrent symptoms. Continues on flecainide and Eliquis. Will follow with cardiology 3. Prediabetes: Will update A1c with dietary efforts 4. Stage III chronic kidney disease: Has been stable with medical therapy. Will follow closely with nephrology 5. Right foot pain: Will check an x-ray to start and look for underlying arthritis 6. Hyperlipidemia: Well-controlled on current simvastatin on labs done in December. Continue same 7. Routine healthcare maintenance: Overdue for colonoscopy. Gave number for Dr. Sena if she has trouble scheduling she will let me know. Will update blood work. She had lipids in December that were well-controlled. She already had her flu shot 08/20/2025 Paroxysmal atrial fibrillation (ICD-10 - I48.0) 1. Hypertension: Well-controlled on current irbesartan, metoprolol, diltiazem and spironolactone. No changes made today 2. Paroxysmal atrial fibrillation: No obvious recurrent symptoms. Continues on flecainide and Eliquis. Will follow with cardiology 3. Prediabetes: Will update A1c with dietary efforts 4. Stage III chronic kidney disease: Has been stable with medical therapy. Will follow closely with nephrology 5. Right foot pain: Will check an x-ray to start and look for underlying arthritis 6. Hyperlipidemia: Well-controlled on current simvastatin on labs done in December. Continue same 7. Routine healthcare maintenance: Overdue for colonoscopy. Gave number for Dr. Sena if she has trouble scheduling she will let me know. Will update blood work. She had lipids in December that were well-controlled. She already had her flu shot 11/05/2024 Essential (primary) hypertension (ICD-10 - I10) 1. Asthmatic Bronchitis: Rx zithromax and medrol Encourage fluids and reassess if not better. 2. Hypertension: Stable on present regimen. No changes made today. 11/05/2024 Acute cough (ICD-10 - R05.1) 1. Asthmatic Bronchitis: Rx zithromax and medrol Encourage fluids and reassess if not better. 2. Hypertension: Stable on present regimen. No changes made today. 11/19/2024 Gastroenteritis (ICD-10 - K52.9) 1. Gastroenteritis: Appears to have been viral - rather than med related. Recheck if not seeing continued improvement declines anti- nausea medication today 11/27/2024 Essential (primary) hypertension (ICD-10 - I10) [...] Eliquis. No abnormal bleeding. Continue same 11/27/2024 Paroxysmal atrial fibrillation (ICD-10 - I48.0) [...] current Eliquis. No abnormal bleeding. Continue same 01/22/2025 Essential (primary) hypertension (ICD-10 - I10) [...] Canales regarding her arthritis as well 01/22/2025 Primary osteoarthritis of both knees (ICD-10 [...] Dr. Canales regarding her arthritis as well 08/01/2025 Essential (primary) hypertension (ICD-10 - I10) 1. Hypertension: Stable on present irbesartan, metoprolol, diltiazem and spironolactone. Will follow with renal 2. Skin lesion of the face: Suspect seborrheic keratosis. Will refer to [facility] 3. Skin lesion on left pretibial region: Question BCC will refer to [facility] 06/03/2025 Essential (primary) hypertension (ICD-10 - I10) 1. Hypertension: Excellent control on current therapy. No changes made today 2. Paroxysmal atrial fibrillation: Stable on flecainide. We discussed the ablation Dr. Logan mentioned. She will consider in the new year. 3. Right leg pain: Question trochanteric bursitis versus radicular. She wishes to return to PT and has upcoming rheumatology appointment. Could ask for cortisone injection then 4. Stage IIIa chronic kidney disease: Stable on current medical therapy. Knows to avoid NSAIDs. Will follow closely with nephrology 06/03/2025 Paroxysmal atrial fibrillation (ICD-10 - I48.0) 1. Hypertension: Excellent control on current therapy. No changes made today 2. Paroxysmal atrial fibrillation: Stable on flecainide. We discussed the ablation Dr. Logan mentioned. She will consider in the new year. 3. Right leg pain: Question trochanteric bursitis versus radicular. She wishes to return to PT and has upcoming rheumatology appointment. Could ask for cortisone injection then 4. Stage IIIa chronic kidney disease: Stable on current medical therapy. Knows to avoid NSAIDs. Will follow closely with nephrology 03/19/2025 Essential (primary) hypertension (ICD-10 - I10) [...] to avoid anti-inflammator ies. Will follow 03/19/2025 Prediabetes (ICD-10 - R73.03) 1. Hypertension: [...] to avoid anti-inflammator ies. Will follow 01/22/2025 Essential (primary) hypertension (ICD-10 - I10) 11/29/2024 Essential (primary) hypertension (ICD-10 - I10) [...] to go back up on her hydralazine. 03/19/2025 Paroxysmal atrial fibrillation (ICD-10 - I48.0) [...] Knows to avoid anti-inflammator ies. Will follow 08/20/2025 Prediabetes (ICD-10 - R73.03) 1. Hypertension: Well-controlled on current irbesartan, metoprolol, diltiazem and spironolactone. No changes made today 2. Paroxysmal atrial fibrillation: No obvious recurrent symptoms. Continues on flecainide and Eliquis. Will follow with cardiology 3. Prediabetes: Will update A1c with dietary efforts 4. Stage III chronic kidney disease: Has been stable with medical therapy. Will follow closely with nephrology 5. Right foot pain: Will check an x-ray to start and look for underlying arthritis 6. Hyperlipidemia: Well-controlled on current simvastatin on labs done in December. Continue same 7. Routine healthcare maintenance: Overdue for colonoscopy. Gave number for Dr. Sena if she has trouble scheduling she will let me know. Will update blood work. She had lipids in December that were well-controlled. She already had her flu shot 06/03/2025 Right leg pain (ICD-10 - M79.604) 1. Hypertension: Excellent control on current therapy. No changes made today 2. Paroxysmal atrial fibrillation: Stable on flecainide. We discussed the ablation Dr. Logan mentioned. She will consider in the new year. 3. Right leg pain: Question trochanteric bursitis versus radicular. She wishes to return to PT and has upcoming rheumatology appointment. Could ask for cortisone injection then 4. Stage IIIa chronic kidney disease: Stable on current medical therapy. Knows to avoid NSAIDs. Will follow closely with nephrology 08/01/2025 Skin lesion (ICD-10 - L98.9) 1. Hypertension: Stable on present irbesartan, metoprolol, diltiazem and spironolactone. Will follow with renal 2. Skin lesion of the face: Suspect seborrheic keratosis. Will refer to [facility] 3. Skin lesion on left pretibial region: Question BCC will refer to [facility] 01/22/2025 Unsteady gait (ICD-10 - R26.81) 1. [...] Dr. Canales regarding her arthritis as well 06/03/2025 Stage 3a chronic kidney disease (CKD) (ICD-10 - N18.31) 1. Hypertension: Excellent control on current therapy. No changes made today 2. Paroxysmal atrial fibrillation: Stable on flecainide. We discussed the ablation Dr. Logan mentioned. She will consider in the new year. 3. Right leg pain: Question trochanteric bursitis versus radicular. She wishes to return to PT and has upcoming rheumatology appointment. Could ask for cortisone injection then 4. Stage IIIa chronic kidney disease: Stable on current medical therapy. Knows to avoid NSAIDs. Will follow closely with nephrology 08/20/2025 Stage 3a chronic kidney disease (CKD) (ICD-10 - N18.31) 1. Hypertension: Well-controlled on current irbesartan, metoprolol, diltiazem and spironolactone. No changes made today 2. Paroxysmal atrial fibrillation: No obvious recurrent symptoms. Continues on flecainide and Eliquis. Will follow with cardiology 3. Prediabetes: Will update A1c with dietary efforts 4. Stage III chronic kidney disease: Has been stable with medical therapy. Will follow closely with nephrology 5. Right foot pain: Will check an x-ray to start and look for underlying arthritis 6. Hyperlipidemia: Well-controlled on current simvastatin on labs done in December. Continue same 7. Routine healthcare maintenance: Overdue for colonoscopy. Gave number for Dr. Sena if she has trouble scheduling she will let me know. Will update blood work. She had lipids in December that were well-controlled. She already had her flu shot 03/19/2025 Stage 3a chronic kidney disease (CKD) (ICD-10 - N18.31) 1. Hypertension: Stable on present regimen. No changes made today 2. Prediabetes: Stable with nutrition efforts. Will follow-up 3. Paroxysmal atrial fibrillation: No obvious recurrence on current therapy through cardiology. She has an appointment with Dr. Logan in May 4. Stage IIIa chronic kidney disease: Stable labs on present medical therapy. Knows to avoid anti-inflammator ies. Will follow 08/20/2025 Right foot pain (ICD-10 - M79.671) 1. Hypertension: Well-controlled on current irbesartan, metoprolol, diltiazem and spironolactone. No changes made today 2. Paroxysmal atrial fibrillation: No obvious recurrent symptoms. Continues on flecainide and Eliquis. Will follow with cardiology 3. Prediabetes: Will update A1c with dietary efforts 4. Stage III chronic kidney disease: Has been stable with medical therapy. Will follow closely with nephrology 5. Right foot pain: Will check an x-ray to start and look for underlying arthritis 6. Hyperlipidemia: Well-controlled on current simvastatin on labs done in December. Continue same 7. Routine healthcare maintenance: Overdue for colonoscopy. Gave number for Dr. Sena if she has trouble scheduling she will let me know. Will update blood work. She had lipids in December that were well-controlled. She already had her flu shot 08/20/2025 Mixed hyperlipidemia (ICD-10 - E78.2) 1. Hypertension: Well-controlled on current irbesartan, metoprolol, diltiazem and spironolactone. No changes made today 2. Paroxysmal atrial fibrillation: No obvious recurrent symptoms. Continues on flecainide and Eliquis. Will follow with cardiology 3. Prediabetes: Will update A1c with dietary efforts 4. Stage III chronic kidney disease: Has been stable with medical therapy. Will follow closely with nephrology 5. Right foot pain: Will check an x-ray to start and look for underlying arthritis 6. Hyperlipidemia: Well-controlled on current simvastatin on labs done in December. Continue same 7. Routine healthcare maintenance: Overdue for colonoscopy. Gave number for Dr. Sena if she has trouble scheduling she will let me know. Will update blood work. She had lipids in December that were well-controlled. She already had her flu shot 08/20/2025 Encounter for general adult medical examination with abnormal findings (ICD-10 - Z00.01) 1. Hypertension: Well-controlled on current irbesartan, metoprolol, diltiazem and spironolactone. No changes made today 2. Paroxysmal atrial fibrillation: No obvious recurrent symptoms. Continues on flecainide and Eliquis. Will follow with cardiology 3. Prediabetes: Will update A1c with dietary efforts 4. Stage III chronic kidney disease: Has been stable with medical therapy. Will follow closely with nephrology 5. Right foot pain: Will check an x-ray to start and look for underlying arthritis 6. Hyperlipidemia: Well-controlled on current simvastatin on labs done in December. Continue same 7. Routine healthcare maintenance: Overdue for colonoscopy. Gave number for Dr. Sena if she has trouble scheduling she will let me know. Will update blood work. She had lipids in December that were well-controlled. She already had her flu shot Plan Of Treatment Pending Test Test Name Order Date XR Foot Right minimum 3 views 08/20/2025 Next Appt Details Provider Name:DIXON REYES , 12/17/2025 11:30:00 AM, [address] [place], [address], Insurance Providers Payer Name Payer Address Payer Phone Subscriber Number Group Number Insured Name Patient Relationship to Insured Coverage Start Date Coverage End Date MEDICARE [email or web address] [address] [place] [address] [id number] LUKAS RODRIGUEZ Self - patient is the insured 3 [employer] [address] [place] [address] [id number] MARTA RODRIGUEZE Self - patient is the insured 3 Medical (General) History Medical History History ICD Code Disease : Impaired fasting glucose, Disease : Osteoarthritis, Atrial fibrillation, Elevated lipids, Hypertension, Problems: Degenerative joint disease involving multiple joints, Added Date: 06/21/2015, Onset Date: 10/17/2009:Active Problems: Malaise and fatigu e, Added Date: 06/21/2015, Onset Date: 10/17/2009:Active Problems: Mixed hyperlipidem ia, Added Date: 06/21/2015, Onset Date: 10/17/2009:Active Emergency Contact- Merna Osorio ([facility]) Surgical History Surgery Date(Month/Year)
== END 2025-09-17 11:50 | disposition home or self-care (01) ==
LOC: HO.HKA 11:22
PROVIDERS: PCP Internal Medicine; Visit Provider Internal Medicine Nephrology
DX: I15.0 Renovascular hypertension (principal); I70.1 Atherosclerosis of renal artery; N18.31 Chronic kidney disease, stage 3a
CPT/HCPCS: 99214

== ENCOUNTER → 2025-09-17 11:22 | Outpatient (BNVA) | payer MEDICARE, BC, OTHER, SELFPAY | PROVIDERS: PCP Internal Medicine; Visit Provider Internal Medicine Nephrology | DX: I15.0 Renovascular hypertension (principal); M18.31 Unilateral post-traumatic osteoarthritis of first carpometacarpal joint, right hand; I70.1 Atherosclerosis of renal artery | CPT/HCPCS: 99212 ==